=== PATIENT | female | born 1945 | race Caucasian/White ===

== ENCOUNTER → 2018-08-14 11:47 | Outpatient (CLI) | payer MEDICARE, OTHER, SELFPAY ==
--- NOTE | 2018-08-14 | DI.MRI.S_ITS ---
PROCEDURE: MR LUMBAR SPINE WO CON INDICATIONS: RADICULOPATHY OF LEFT LEG TECHNIQUE: Noncontrast sagittal T1 spin echo and T2 fast echo, sagittal STIR, axial T1 and T2 fast spin echo through the lumbar spine. In cases with scoliosis, additional coronal T2 fast spin echo may be performed. COMPARISON: [facility], CR, XR LUMBAR SPINE 2 OR 3 VIEWS, 07/31/2018, 15:48. FINDINGS: Image quality: Excellent. Alignment and Curvature: 5 lumbar type vertebral bodies are present by plain film. There is loss of normal lumbar lordosis. There is mild grade 1 retrolisthesis of L3 on L4 and L4 on L5. Bone Marrow: Marrow is of normal overall signal. No acute vertebral body compression fractures. Atypical T12 hemangioma. Moderate reactive signal within the endplates adjacent to the L3-L4 intervertebral disc. Mild reactive signal within the endplates adjacent to the L4-L5 intervertebral disc. Spinal Cord: Conus medullaris terminates at the mid L2 level. Visualized cord demonstrates normal signal and size. Paraspinous Soft Tissues: No paravertebral masses. L1-L2: Mild disc height loss and desiccation. Mild diffuse disc bulge. Mild bilateral facet hypertrophy and ligamentum flavum hypertrophy. Mild canal stenosis. No foraminal stenosis. L2-L3: Mild disc height loss and desiccation. Moderate diffuse disc bulge. Mild facet and ligamentum flavum hypertrophy. Mild canal stenosis. Mild bilateral foraminal stenosis. L3-L4: Severe disc height loss and desiccation. Moderate diffuse disc bulge. Mild bilateral facet and ligamentum flavum hypertrophy. Mild canal stenosis. Mild bilateral foraminal stenosis. L4-L5: Severe disc height loss and desiccation. Moderate diffuse disc bulge with superimposed right far lateral protrusion. Mild bilateral facet and ligamentum flavum hypertrophy. Mild canal stenosis. Mild to moderate bilateral foraminal stenosis. L5-S1: Mild disc height loss and desiccation. Mild diffuse disc bulge. Moderate facet hypertrophy bilaterally. Mild canal stenosis. Mild to moderate bilateral foraminal stenosis. IMPRESSION: 1. Multilevel degenerative disc and facet disease, as well as ligamentum flavum hypertrophy. 2. Mild multilevel canal stenoses. 3. Multilevel foraminal stenoses, worst at L4-L5 and L5-S1 bilaterally, where there are mild to moderate foraminal stenoses. Dictated by: Xin Tena M.D. on 08/14/2018 at 13:28 Approved by: Xin Tena M.D. on 08/14/2018 at 13:32
== END ==
PROVIDERS: PCP Family Medicine; Visit Provider Orthopaedic Surgery
DX: M51.16 Intervertebral disc disorders with radiculopathy, lumbar region (principal); M51.17 Intervertebral disc disorders with radiculopathy, lumbosacral region; M48.061 Spinal stenosis, lumbar region without neurogenic claudication; M48.07 Spinal stenosis, lumbosacral region
CPT/HCPCS: 72148

== ENCOUNTER → 2018-09-04 13:37 | Outpatient (CLI) | payer MEDICARE, OTHER, SELFPAY ==
--- NOTE | 2018-09-04 | DI.MRI.S_ITS ---
PROCEDURE: MR CERVICAL SPINE WO CON INDICATIONS: SPONDYLOSIS OF CERVICAL REGIONAL TECHNIQUE: Noncontrast sagittal T1 spin echo and T2 fast spin echo, sagittal STIR, foraminal oblique sagittal T2 fast spin echo, and axial gradient echo or T2 fast spin echo through the cervical spine. COMPARISON: [facility], CR, XR CERVICAL SPINE 6+ VIEWS, 08/21/2018, 13:29. FINDINGS: Image quality: Excellent. Alignment and Curvature: There is loss of normal cervical lordosis. There is mild, grade 1 anterolisthesis of C4 on C5, C5 on C6, C6 on C7, and C7 on T1. Bone Marrow: Marrow demonstrates normal overall signal. Hemangioma within the odontoid process of C2. Spinal Cord: Visualized spinal cord has normal size and signal. No cerebellar tonsillar herniation. Paraspinous Soft Tissues: No paravertebral masses. Prevertebral soft tissues are normal in thickness. C2-C3: Mild disc height loss and desiccation. Mild diffuse disc bulge. Mild bilateral facet hypertrophy. Minimal canal stenosis. No foraminal stenosis. C3-C4: Mild disc height loss and desiccation. Mild diffuse disc bulge. Mild bilateral facet hypertrophy. Mild canal stenosis. Mild bilateral foraminal stenosis. C4-C5: Mild disc loss and desiccation. Mild diffuse disc bulge. Right greater than left facet and uncovertebral hypertrophy. Mild canal stenosis. Mild right greater than left foraminal stenosis. C5-C6: Mild disc height loss and desiccation. Mild diffuse disc bulge. Mild bilateral facet and uncovertebral hypertrophy. Mild canal stenosis. Mild bilateral foraminal stenosis. C6-C7: Mild disc height loss and desiccation. Mild diffuse disc bulge. Mild bilateral facet and uncovertebral hypertrophy. Mild canal stenosis. Mild bilateral foraminal stenosis. C7-T1: Mild disco loss and desiccation. Mild diffuse disc bulge, with superimposed small central protrusion. Mild canal stenosis. Mild bilateral foraminal stenosis. IMPRESSION: 1. Multilevel degenerative disc and facet disease, as well as uncovertebral hypertrophy. 2. Mild multilevel canal and foraminal stenoses. 3. No neural impingement. Dictated by: Xin Tena M.D. on 09/04/2018 at 14:42 Approved by: Xin Tena M.D. on 09/04/2018 at 14:45
== END ==
PROVIDERS: PCP Family Medicine; Visit Provider Physical Medicine & Rehabilitation
DX: M47.812 Spondylosis without myelopathy or radiculopathy, cervical region (principal); M50.31 Other cervical disc degeneration, high cervical region; M48.02 Spinal stenosis, cervical region
CPT/HCPCS: 72141

== ENCOUNTER 2019-06-20 09:33 | Outpatient (CLI) | payer MEDICARE, OTHER, SELFPAY ==
[2019-06-20] VITALS (8 sets, daily range): BP systolic 94–123; BP diastolic 43–79; PULSE 69–79; RESP 16–18; TEMP 36.2; O2SAT 97–100
--- NOTE | 2019-06-20 09:34 | DI.RAD.S_ITS ---
PROCEDURE: PAIN C/T INTERLAMINAR INJECT INDICATIONS: SPONDYLOSIS FINDINGS: Fluoroscopic spot filming was performed to verify placement of spinal needles at the C7-T1 level(s), as labeled on the films. Appropriate location(s) of the needle tip(s) was confirmed by injection of iodinated contrast. Dictated by: Beto Humphries M.D. on 06/20/2019 at 13:40 Approved by: Beto Humphries M.D. on 06/20/2019 at 13:40
--- NOTE | 2019-06-20 11:37 | PC.NURSE ---
reporting numbness foot and getting worst, dr mcintyre made aware.
--- NOTE | 2019-06-20 11:56 | P.PCN_ITS ---
Procedures Date/Time Date of procedure: 06/20/19 Time of procedure: 11:56 General Procedure description: PREOP DIAGNOSIS 1. CERVICAL STENOSIS, 2. CERVICAL HNP WITH UPPER EXTREMITY RADICULAR FEATURES, POST OP DIAGNOSIS 1. CERVICAL STENOSIS, 2. CERVICAL HNP WITH UPPER EXTREMITY RADICULAR FEATURES, PROCEDURES 1. FLUORSCOPICALLY GUIDED CONTRAST CONTROLLED INTERLAMINAR EPIDURAL STEROID INJECTION - C7/T1 TL JOANNE, PHYSICIAN: Marciano Wilder DO INDICATIONS: Linda is referred by for treatment of Cervical Stenosis. FINDINGS Cervical Stenosis due to disc deterioration and nerve root irritation and nerve root irritation DESCRIPTION OF PROCEDURE Fluoroscopically guided, contrast-controlled C7/T1 translaminar epidural steroid injection with conscious sedation. Following review of allergy and review of potential side effects and complications, including, but not necessarily limited to, infection, allergic reaction, local tissue breakdown, temporary as well as permanent nerve injury, stroke, paralysis, and possible , the patient indicated that patient understood and agreed to proceed. An informed consent document was signed by the patient, witnessed by a nurse, and placed in the patient's chart. Additionally, other treatment options including modalities, medications, and physical therapy were reviewed with the patient. After review of previous anaesthesic history and IV conscious sedation the pat ient was deemed safe to proceed with todays procedure with IV conscious sedation as ASA class II designation. Safety time-out was performed to confirm patient ID, procedure to be performed and site of procedure. IV sedation was accomplished with a combination of 2mg of Versed administered by the RN after DO order, titrated to patient comfort during the course of the procedure while the patient remained responsive to all verbal commands. In the prone position, following sterile prep and drape of the cervical region, the C7/T1 translaminar space was identified fluoroscopically. The skin was ane sthetized via a 25-gauge 1.5-inch needle with 1% lidocaine solution. At this point, a 25-gauge, 2.5-inch short bevel spinal needle was atraumatically introduced and advanced under fluoroscopic guidance into epidural space at the C7/T1 translaminar space. Depth was confirmed on lateral view. Radiological data, including multiple fluoroscopic views of the cervical spine, reveal a spinal needle at the C7/T1 translaminar space. Lateral views then show placement of the needle in the epidural space. Subsequent views show contrast material flowing superiorly and inferiorly in the epidural space. DSA fluoroscopy with live contrast injection, once again, confirmed no vascular or intrathecal uptake. At this point, using loss of resistance technique with saline and air, the epidural space was entered. Following negative aspiration, injection of approximately 1.5 cc of Isovue-200 with live fluoroscopy in the AP view confirmed epidural flow in the epidural space without vascular or intrathecal uptake observed. Subsequently, a test dose of 1 cc of 1% lidocaine solution was injected and patient was observed for two minutes without signs or symptoms of complications, including abdominal pain, shortness of breath, bilateral upper or lower extremity weakness, nausea and vomiting, prior to steroid injection. At this point, 3cc or 30mg of dexamethasone was then injected without incident. The patient tolerated the procedure well without signs or symptoms of complications prior to transfer to the recovery area for further monitoring The patient was then transferred to the recovery area where they were observed for an appropriate period of time after the injection. The patient reported a VAS score of 6 prior to the procedure and a post-procedure VAS of 0. Total Fluoroscopy Time: 23.2 seconds Total Conscious Sedation Time: 24min POST OP INSTRUCTIONS The patient was provided a Pain Log to continue to record their response to the target-specific procedure prior to follow-up visit with the referring provider. Additionally, specific post-injection care instructions and a contact number to our office were provided if concerns arise regarding possible complications ass ociated with the procedure are suspected. Marciano Wilder, Complications: none
[2019-06-20] MEDS: MIDAZOLAM 5 MG/5 ML VIAL IV (12:02)
[2019-06-20] MEDS: IOPAMIDOL 15 ML VIAL 3 ML INJ (12:07)
[2019-06-20] MEDS: DEXAMETHASONE 10 MG/ML VIAL 30 MG INJ (12:07)
[2019-06-20] MEDS: BUPIVACAINE 0.5% (PF) VIAL 2 ML INJ (12:08)
--- NOTE | 2019-06-20 12:51 | PC.NURSE ---
1214 pt returned via w/c post procedure, is alert and able to get self from w/c to recliner without assistance. resumed care from dirk yee. ice water provided, pt tolerated snacks.
--- NOTE | 2019-06-20 15:50 | PC.NURSE ---
1214 rtr via w/c post procedure, able to transfer self from w/c to stretcher with assist, resuming care from dirk yee. cookies and coffee provided.
== END 2019-06-20 12:51 | disposition home or self-care (01) ==
LOC: RAD 09:34
PROVIDERS: PCP Family Medicine; Visit Provider Physical Medicine & Rehabilitation
DX: M48.02 Spinal stenosis, cervical region (principal); M50.13 Cervical disc disorder with radiculopathy, cervicothoracic region
CPT/HCPCS: 62321; 99152; J1100; J2250; J3010

== ENCOUNTER 2019-08-15 14:19 | Outpatient (CLI) | payer MEDICARE, OTHER, SELFPAY ==
[2019-08-15] VITALS (8 sets, daily range): BP systolic 101–125; BP diastolic 48–76; PULSE 70–79; RESP 16; TEMP 36.1; O2SAT 94–99
--- NOTE | 2019-08-15 14:22 | DI.RAD.S_ITS ---
PROCEDURE: PAIN L INTERLAMINAR/CAUDAL INJ INDICATIONS: SPINAL STENOSIS FINDINGS: Fluoroscopic spot filming was performed to verify placement of spinal needles at the L3-L4 level(s), as labeled on the films. Appropriate location(s) of the needle tip(s) was confirmed by injection of iodinated contrast. Dictated by: Beto Humphries M.D. on 08/15/2019 at 17:09 Approved by: Beto Humphries M.D. on 08/15/2019 at 17:09
--- NOTE | 2019-08-15 14:59 | P.PCN_ITS ---
Procedures Date/Time Date of procedure: 08/15/19 Time of procedure: 14:59 General Procedure description: PROVIDER: Marciano Wilder DO Operative Note PREOP DIAGNOSIS 1. HNP WITH RADICULAR FEATURES, 2. MULTILEVEL CENTRAL STENOSIS, POST OP DIAGNOSIS 1. HNP WITH RADICULAR FEATURES, 2. MULTILEVEL CENTRAL STENOSIS PROCEDURES 1. FLUORSCOPICALLY GUIDED CONTRAST CONTROLLED INTERLAMINAR EPIDURAL STEROID INJECTION -L3/4 PHYSICIAN: Marciano Wilder DO INDICATIONs: Linda is referred by for treatment of Bilateral Foraminal Stenosis R>L LE symptoms. FINDINGS Multilevel Central Spinal Stenosis with Nerve Root Compression DESCRIPTION OF PROCEDURE Fluoroscopically guided, contrast-controlled L3/4 translaminar epidural steroid injection. Following review of allergy and review of potential side effects and complications, including, but not necessarily limited to, infection, allergic reaction, local tissue breakdown, temporary as well as permanent nerve injury, paralysis, stroke and possible , the patient indicated that the patient understood and agreed to proceed. An informed consent document was signed by the patient, witnessed by a nurse, and placed in the patient's chart. Additionally, other treatment options including modalities, medications, and physical therapy were reviewed with the patient. After review of previous anaesthesic history and IV conscious sedation the patient was deemed safe to proceed with todays procedure with IV conscious sedation as ASA class II designation. Safety time-out was performed to confirm patient ID, procedure to be performed and site of procedure. IV sedation was a ccomplished with a combination of 2mg of Versed and 50mcg of Fentanyl was administered by the RN after DO order, titrated to patient comfort during the course of the procedure while the patient remained responsive to all verbal commands In the prone position, following sterile prep and drape of the lumbar region, the L3/4 translaminar space was identified fluoroscopically. The skin was anesthetized via a 25-gauge, 1.5-inch needle with 1% lidocaine solution. At this point, a 22-gauge short bevel spinal needle was atraumatically introduced and advanced under fluoroscopic guidance into the region of the L3/4 translaminar space. Depth was confirmed on lateral view. Radiological data, including multiple fluoroscopic views of the lumbar spine, reveal a spinal needle at the L3/4 translaminar space. Lateral views then show placement of the needle in the epidural space. Subsequent views show contrast material flowing superiorly and inferiorly in the epidural space. No vascular or intrathecal uptake is observed. At this point, using loss of resistance technique with saline and air, the epidural space was entered. This was confirmed following negative aspiration with injection of approximately 1.5 cc of Isovue 200, showing excellent epidural flow without vascular or intrathecal uptake. At this point, 1 cc of 1% lidocaine solution combined with 3cc or 20mg of dexamethasone and 6mg betamethasone was injected without incident. The patient tolerated the procedure well without signs or symptoms of complications prior to transfer to the recovery area continued monitoring w ithout incident. The patient was then transferred to the recovery area where they were observed for an appropriate period of time after the injection. The patient reported a VAS score of 6 prior to the procedure and a post- procedure VAS of 0. Total Fluoroscopy Time: 11.8 seconds, 8.99 mGy Total Conscious Sedation Time: 24min POST OP INSTRUCTIONS The patient was provided a Pain Log to continue to record their response to the target-specific procedure prior to follow-up visit with their referring physician. Additionally, specific post-injection care instructions and a contact number to our office were provided if concerns arise regarding possible complications associated with the procedure are suspected. Marciano Wilder, Complications: none
[2019-08-15] MEDS: MIDAZOLAM 5 MG/5 ML VIAL IV (15:56)
[2019-08-15] MEDS: fentaNYL 100 MCG/2 ML INJ 50 MCG IV (15:57)
[2019-08-15] MEDS: IOPAMIDOL 15 ML VIAL 3 ML INJ (16:00)
[2019-08-15] MEDS: BETAMETHASONE 30 MG/5 ML MDV 6 MG INJ (16:01)
[2019-08-15] MEDS: DEXAMETHASONE 10 MG/ML VIAL 20 MG INJ (16:01)
[2019-08-15] MEDS: BUPIVACAINE 0.25% (PF) VIAL 2 ML INJ (16:01)
--- NOTE | 2019-08-15 16:03 | PC.NURSE ---
ASSISTING PT OFF TABLE AND TRANSPORTING TO POST PROC AREA IN STABLE CONDITION.
--- NOTE | 2019-08-15 16:46 | PC.NURSE ---
Discharge note: Arrived for post procedure monitoring at 1610. VSS, O2 sat WNL on RA. tolerated PO without nausea. No complaints of pain. 10/18. Discharge instructions reviewed with good understanding. Ambulated to car. Gait steady. Will take ferry back to [facility].
== END 2019-08-15 16:43 ==
LOC: RAD 14:21
PROVIDERS: PCP Family Medicine; Visit Provider Physical Medicine & Rehabilitation
DX: M51.16 Intervertebral disc disorders with radiculopathy, lumbar region (principal); M48.061 Spinal stenosis, lumbar region without neurogenic claudication
CPT/HCPCS: 62323; 99152; J0702; J1100; J2250; J3010

== ENCOUNTER → 2020-03-26 11:02 | Outpatient (CLI) | payer MEDICARE, OTHER, SELFPAY ==
--- NOTE | 2020-03-26 11:45 | DI.CT.S_ITS ---
PROCEDURE: CT ABDOMEN PELVIS WO CON INDICATIONS: Left lower quadrant pain TECHNIQUE: After the administration of oral contrast, 5 mm thick sections acquired from the diaphragms to the symphysis. 5 mm coronal and sagittal reformats were performed. For radiation dose reduction, the following was used: automated exposure control, adjustment of mA and/or kV according to patient size. COMPARISON: None. FINDINGS: Image quality: Excellent. ABDOMEN: Lung bases: Lung bases are clear. Heart size is normal. Solid organs: Liver is normal in size. Gallbladder negative. Pancreas is normal in size. Spleen is normal in size. No adrenal nodules. Both kidneys are normal in size, without hydronephrosis or nephrolithiasis. Peritoneum and bowel: Bowel loops demonstrate normal wall thickness and caliber. No free fluid or air. Nodes and vessels: No retroperitoneal or mesenteric adenopathy by size criteria. Aorta and inferior vena cava are normal in size. Miscellaneous: No ventral hernias. PELVIS: Genitourinary: Bladder is obscured by streak artifact from bilateral hip arthroplasties. Incidentally noted pessary. Bilateral mildly enlarged inguinal lymph nodes, technically non-specific Bones: No suspicious bony lesions. No vertebral body compression fractures. IMPRESSION: No specific visualized etiology for left lower quadrant pain. However, please note pelvis is partially obscured by streak artifact from bilateral hip arthroplasties technically cannot entirely exclude acute diverticulitis, although where visualized the bowel appears grossly normal. No hernia identified. Mild bilaterally enlarged inguinal lymph nodes, recommend clinical correlation and management. Dictated by: Beto Humphries M.D. on 03/26/2020 at 14:25 Approved by: Beto Humphries M.D. on 03/26/2020 at 14:34
== END ==
PROVIDERS: PCP Family Medicine; Referring Provider Family Medicine; Visit Provider Family Medicine
DX: R10.32 Left lower quadrant pain (principal); R59.0 Localized enlarged lymph nodes; Z96.643 Presence of artificial hip joint, bilateral
CPT/HCPCS: 74176

== ENCOUNTER → 2020-08-05 10:39 | Outpatient (CLI) | payer MEDICARE, OTHER, SELFPAY ==
--- NOTE | 2020-08-05 10:41 | DI.RAD.S_ITS ---
PROCEDURE: XR LUMBAR SPINE MIN 4V INDICATIONS: HERNIATED NUCLEUS, ATHROPATHY, SONDYLOSIS TECHNIQUE: 5 views of the lumbar spine were acquired. COMPARISON: None. FINDINGS: Bones: 5 nonrib-bearing vertebrae are present. There is normal bony alignment. No vertebral body compression fractures. No suspicious bony lesions. Severe L3-L4 and L4-L5 degenerative disc disease. Moderate L4-L5 and L5-S1 facet arthropathy. Soft tissues: Overlying bowel gas pattern is normal. No suspicious soft tissue calcifications. Oblique images: No pars defects. IMPRESSION: 1. Multilevel degenerative disc disease. 2. Multilevel facet arthropathy. 3. No fracture. No acute osseous lesion. If symptoms and/or clinical suspicion for pathology persists, evaluation with MRI may be helpful for further assessment. Dictated by: Rosa Agarwal MD, PhD on 08/05/2020 at 16:56 Approved by: Rosa Agarwal MD, PhD on 08/05/2020 at 16:57
--- NOTE | 2020-08-05 12:23 | DI.RAD.S_ITS ---
PROCEDURE: XR KNEE LT 3V INDICATIONS: left knee pain TECHNIQUE: 3 views of the knee were acquired. COMPARISON: None. FINDINGS: Bones: No acute fractures or dislocations. No suspicious bony lesions. Mild degenerative changes are seen in the medial and anterior compartments. Soft tissues: Small joint effusion. No suspicious soft tissue calcifications. IMPRESSION: No acute osseous abnormality. Mild degenerative changes are seen. Small joint effusion. Dictated by: Bertin Boo M.D. on 08/05/2020 at 12:50 Approved by: Bertin Boo M.D. on 08/05/2020 at 12:51
== END ==
PROVIDERS: PCP Family Medicine; Referring Provider Physical Medicine & Rehabilitation; Visit Provider Physical Medicine & Rehabilitation
DX: M17.12 Unilateral primary osteoarthritis, left knee (principal); M25.462 Effusion, left knee; M47.27 Other spondylosis with radiculopathy, lumbosacral region; M47.26 Other spondylosis with radiculopathy, lumbar region; M51.17 Intervertebral disc disorders with radiculopathy, lumbosacral region; M51.16 Intervertebral disc disorders with radiculopathy, lumbar region
CPT/HCPCS: 72110; 73562; 99214

== ENCOUNTER 2020-08-27 08:54 | Outpatient (CLI) | payer MEDICARE, OTHER, SELFPAY ==
[2020-08-27] VITALS (8 sets, daily range): BP systolic 102–116; BP diastolic 56–67; PULSE 69–81; RESP 13–23; TEMP 36.6–37.2; O2SAT 96–100
--- NOTE | 2020-08-27 08:58 | DI.RAD.S_ITS ---
PROCEDURE: PAIN L INTERLAMINAR/CAUDAL INJ INDICATIONS: SPONDYLOSIS COMPARISON: [facility], XA, PAIN L INTERLAMINAR/CAUDAL INJ, 08/15/2019, 15:57. FINDINGS: Fluoroscopic spot filming was performed to verify placement of a spinal needle at the L3-L4 level, as labeled on the films. Appropriate location of the needle tip was confirmed by injection of iodinated contrast. IMPRESSION: No significant intraprocedural abnormality. Dictated by: Yobani Ward M.D. on 08/27/2020 at 9:27 Approved by: Yobani Ward M.D. on 08/27/2020 at 9:28
[2020-08-27] MEDS: fentaNYL 100 MCG/2 ML INJ 50 MCG IV (10:00)
[2020-08-27] MEDS: MIDAZOLAM 5 MG/5 ML VIAL IV (10:00)
[2020-08-27] MEDS: IOPAMIDOL 15 ML VIAL 3 ML INJ (10:02)
[2020-08-27] MEDS: BETAMETHASONE 30 MG/5 ML MDV 6 MG INJ (10:03)
[2020-08-27] MEDS: DEXAMETHASONE 10 MG/ML VIAL 20 MG INJ (10:03)
[2020-08-27] MEDS: BUPIVACAINE 0.25% (PF) VIAL 5 ML SUBCUT (10:05)
--- NOTE | 2020-08-27 10:11 | P.PCN_ITS ---
Date/Time/Diagnoses Date of procedure: 08/27/20 Time of procedure: 10:11 Pre-procedure diagnosis: 1. HNP WITH RADICULAR FEATURES, 2. MULTILEVEL CENTRAL STENOSIS, Post-procedure diagnosis: same Procedure Notes Procedure: 1. FLUOROSCOPICALLY GUIDED CONTRAST CONTROLLED INTERLAMINAR EPIDURAL STEROID INJECTION - L3/4 Indications: Linda is referred by Dr. Aguilar for treatment of Bilateral Foraminal Stenosis L>R LE symptoms. Physician: Marciano Wilder Total Fluoroscopy time (seconds): 7 Total sedation minutes: 9 Complications: none Procedure in detail & Post-procedure care: FINDINGS Multilevel Central Spinal Stenosis with Nerve Root Compression DESCRIPTION OF PROCEDURE Fluoroscopically guided, contrast-controlled L3/4 translaminar epidural steroid injection. Following review of allergy and review of potential side effects and complications, including, but not necessarily limited to, infection, allergic reaction, local tissue breakdown, temporary as well as permanent nerve injury, paralysis, stroke and possible , the patient indicated that the patient understood and agreed to proceed. An informed consent document was signed by the patient, witnessed by a nurse, and placed in the patient's chart. Additionally, other treatment options including modalities, medications, and physical therapy were reviewed with the patient. After review of previous anaesthesic history and IV conscious sedation the patient was deemed safe to proceed with today?s procedure with IV conscious sedation as ASA class II designation. Safety time-out was performed to confirm patient ID, procedure to be performed and site of procedure. IV sedation was accomplished with a combination of 2mg of Versed and 50mcg of Fentanyl was administered by the RN after DO order, titrated to patient comfort during the course of the procedure while the patient remained responsive to all verbal commands. In the prone position, following sterile prep and drape of the lumbar region, the L3/4 translaminar space was identified fluoroscopically. The skin was anesthetized via a 25-gauge, 1.5-inch needle with 1% lidocaine solution. At this point, a 22-gauge short bevel spinal needle was atraumatically introduced and advanced under fluoroscopic guidance into the region of the L3/4 translaminar space. Depth was confirmed on lateral view. Radiological data, including multiple fluoroscopic views of the lumbar spine, reveal a spinal needle at the L3/4 translaminar space. Lateral views then show placement of the needle in the epidural space. Subsequent views show contrast material flowing superiorly and inferiorly in the epidural space. No vascular or intrathecal uptake is observed. At this point, using loss of resistance technique with saline and air, the epidural space was entered. This was confirmed following negative aspiration with injection of approximately 1.5 cc of Isovue 200, showing excellent epidural flow without vascular or intrathecal uptake. At this point, 1cc of 1% lidocaine solution combined with 3cc or 20mg of dexamethasone and 6mg of betamethasone was injected without incident. The patient tolerated the procedure well without signs or symptoms of complications prior to transfer to the recovery area continued monitoring without incident. The patient was then transferred to the recovery area where they were observed for an appropriate period of time after the injection. The patient reported a VAS score of 6 prior to the procedure and a post- procedure VAS of 0. POST OP INSTRUCTIONS The patient was provided a Pain Log to continue to record their response to the target-specific procedure prior to follow-up visit with their referring physician. Additionally, specific post-injection care instructions and a contact number to our office were provided if concerns arise regarding possible complications associated with the procedure are suspected.
== END 2020-08-27 10:30 | disposition home or self-care (01) ==
LOC: RAD 08:58
PROVIDERS: PCP Family Medicine; Referring Provider Physical Medicine & Rehabilitation; Visit Provider Physical Medicine & Rehabilitation
DX: M51.26 Other intervertebral disc displacement, lumbar region (principal)
CPT/HCPCS: 62323; J0702; J1100; J2250; J3010

== ENCOUNTER 2020-12-01 08:55 | Day surgery (SDC) | payer MEDICARE, OTHER, SELFPAY ==
[2020-12-01 09:50] VITALS: BP 105/66; PULSE 71; RESP 16; TEMP 37.2; O2SAT 100; BMI 20.8
[2020-12-01] MEDS: PROPARACAINE 0.5% OPHTH SOL 2 DROPS EYE-OP (09:50)
[2020-12-01] MEDS: CATARACT EYE COMPOUND (10 DROPS/SYRINGE) 3 DROPS EYE-OP (10:04)
--- NOTE | 2020-12-01 10:20 | P.OP_ITS ---
Operative Date/Time/Diagnoses Pre-op diagnosis: Nuclear cataract right eye Procedure & Clinicians Procedure: Cataract Surgery Same procedure as scheduled: Yes Surgeon: Issac Kaye Anesthesia Type: MAC +/- and Sedation Operative Notes Procedure in detail: Patient brought to the operating suite. Tetracaine drops placed in the right eye. Marking instrument was used to elisa vertical and horizontal meridians. Patient was prepped and draped in sterile manner. Wire lid speculum was placed in the eye. Marking instrument was used to elisa 170 degree meridian. Betadine drops were placed on the eye. This was irrigated. Lidocaine jelly was placed on the eye. A paracentesis port was created with a side-port blade. 0.1 mL 1% preservative free lidocaine was injected into the anterior chamber. The anterior chamber was deepened with viscoelastic. 2.6 mm keratome was used to create a temporal clear corneal incision. Cystotome and Utrata forceps were used to create continuous tear capsulorrhexis. Balanced salt solution was used to hydro dissect the nucleus. The phacoemulsification handpiece was inserted and the nucleus was removed using the stop and chop technique. The irrigation aspiration handpiece was inserted and the remaining cortex was removed. Anterior chamber was deepened with viscoelastic. An Long [id number] intraocular lens with a power of 21.0 was injected into the capsular bag. Irrigation aspiration handpiece was inserted and the remaining viscoelastic was removed. The lens was rotated to the 170 degree meridian. Incision was hydrated with balanced salt solution and found to leak. One 10-0 Nylon suture was placed to close the incision and it was leak free with pressure with Weck- Lana sponges. 0.1 mL Vigamox injected anterior chamber. 0.3 mL Kenalog 10 mg was injected subconjunctivally. Lid speculum was removed. The patient left the operating room in excellent condition. Complications: none Post-operative Condition: stable Disposition: same day surgery
--- NOTE | 2020-12-01 10:20 | PM.PREOP ---
Pre-operative Note Interval Note History & Physical reviewed/Exam performed by Physician: Yes Changes to H&P: No
[2020-12-01] MEDS: PHENYLEPHRINE/LIDOCAINE VIAL (OR) 0.2 ML EYE-OP (10:38)
[2020-12-01] MEDS: TRIAMCINOLONE 50 MG/5 ML VIAL INJ (10:38)
[2020-12-01] MEDS: BALANCED SALT IRRIG SOLN NO.2 500 ML, EPINEPHrine 1 MG IRR (10:39)
[2020-12-01] MEDS: MOXIFLOXACIN INJ 5 MG/ML VIAL EYE-OP (10:39)
[2020-12-01] MEDS: CHONDROIDTIN/SOD HYALURONATE 1.05 ML SYRINGE INTRAOCULA (10:39)
[2020-12-01] MEDS: LIDOCAINE JELLY 2% 5 ML 1 APPLIC TOP (10:39)
[2020-12-01] MEDS: TETRACAINE 0.5% OPHTH DROPS 4 ML 2 DROPS EYE-OP (10:40)
[2020-12-01 11:05] VITALS: BP 114/66; PULSE 65; RESP 16; TEMP 37.3; O2SAT 98
== END 2020-12-01 11:20 | disposition home or self-care (01) ==
PROVIDERS: PCP Family Medicine; Referring Provider Ophthalmology; Visit Provider Ophthalmology
PROC: (CPT 66984; principal; 2020-12-01 10:45)
DX: H25.11 Age-related nuclear cataract, right eye (principal)
CPT/HCPCS: 66984; J0171; J2250; J3010; J3301; V2787

== ENCOUNTER 2020-12-15 11:02 | Day surgery (SDC) | payer MEDICARE, OTHER, SELFPAY ==
[2020-12-15 11:45] VITALS: BP 106/63; PULSE 68; RESP 16; TEMP 36.8; O2SAT 98; BMI 20.2
[2020-12-15] MEDS: PROPARACAINE 0.5% OPHTH SOL 2 DROPS EYE-OP (11:45)
[2020-12-15] MEDS: CATARACT EYE COMPOUND (10 DROPS/SYRINGE) 3 DROPS EYE-OP (11:55)
--- NOTE | 2020-12-15 12:58 | P.OP_ITS ---
Operative Date/Time/Diagnoses Pre-op diagnosis: Nuclear Cataract Left eye Post-op diagnosis: same Procedure & Clinicians Same procedure as scheduled: Yes Surgeon: Issac Kaye Anesthesia Type: MAC +/- and Sedation Operative Notes Procedure in detail: Patient brought to the operating suite. Tetracaine drops placed in the left eye. Marking instrument was used to elisa the vertical and horizontal meridians. Patient was prepped and draped in sterile manner. Wire lid speculum was placed in the eye. Marking instrument was used to elisa the 170 degree meridian. Betadine drops were placed on the eye. This was irrigated. Lidocaine jelly was placed on the eye. A paracentesis port was created with a side-port blade. 0.1 mL 1% preservative free lidocaine was injected into the anterior chamber. The anterior chamber was deepened with viscoelastic. 2.6 mm keratome was used to create a temporal clear corneal incision. Cystotome and Utrata forceps were used to create continuous tear capsulorrhexis. Balanced salt solution was used to hydro dissect the nucleus. The phacoemulsification handpiece was inserted and the nucleus was removed using the stop and chop tech nique. The irrigation aspiration handpiece was inserted and the remaining cortex was removed. Anterior chamber was deepened with viscoelastic. An Long [id number] intraocular lens with a power of 20.5 was injected into the capsular bag. Irrigation aspiration handpiece was inserted and the remaining viscoelastic was removed. The lens was rotated to the 170 degree meridian. Incision was hydrated with balanced salt solution and found to be leak free with pressure with Weck-Lana sponges. 0.1 mL Vigamox injected anterior chamber. 0.3 mL Kenalog 10 mg was injected subconjunctivally. Lid speculum was removed. The patient left the operating room in excellent condition. Complications: none Post-operative Condition: stable Disposition: same day surgery
--- NOTE | 2020-12-15 12:58 | PM.PREOP ---
Pre-operative Note Interval Note History & Physical reviewed/Exam performed by Physician: Yes Changes to H&P: No
[2020-12-15] MEDS: MOXIFLOXACIN INJ 5 MG/ML VIAL EYE-OP (13:16)
[2020-12-15] MEDS: TRIAMCINOLONE 50 MG/5 ML VIAL INJ (13:16)
[2020-12-15] MEDS: LIDOCAINE JELLY 2% 5 ML 1 APPLIC TOP (13:16)
[2020-12-15] MEDS: TETRACAINE 0.5% OPHTH DROPS 4 ML 2 DROPS EYE-OP (13:17)
[2020-12-15] MEDS: BALANCED SALT IRRIG SOLN NO.2 500 ML, EPINEPHrine 1 MG IRR (13:17)
[2020-12-15] MEDS: CHONDROIDTIN/SOD HYALURONATE 1.05 ML SYRINGE INTRAOCULA (13:17)
[2020-12-15] MEDS: PHENYLEPHRINE/LIDOCAINE VIAL (OR) 0.2 ML EYE-OP (13:17)
[2020-12-15 13:38] VITALS: BP 102/60; PULSE 63; RESP 13; TEMP 36.8; O2SAT 98
== END 2020-12-15 14:09 | disposition home or self-care (01) ==
PROVIDERS: PCP Family Medicine; Referring Provider Ophthalmology; Visit Provider Ophthalmology
PROC: (CPT 66984; principal; 2020-12-15 13:15)
DX: H25.12 Age-related nuclear cataract, left eye (principal)
CPT/HCPCS: 66984; J0171; J2250; J3010; J3301; V2788

== ENCOUNTER → 2021-06-18 14:55 | Outpatient (CLI) | payer MEDICARE, OTHER, SELFPAY ==
[2021-06-18 18:38] LABS: C-Reactive Protein Quant < 0.5 mg/dL (<1.0); Hemoglobin A1C% w Est Avg Glu 5.4 % (4.0-6.0)
[2021-06-18 18:49] LABS: Rheumatoid Factor < 8.6 IU/mL (<12.0)
[2021-06-18 18:50] LABS: Erythrocyte Sedimentation Rate 5 MM/HR (0-20)
[2021-06-18 19:24] LABS: Vitamin B12 348 pg/mL (239-931)
[2021-06-22 16:36] LABS: ANA Screen, IFA Negative (.)
== END ==
PROVIDERS: PCP Family Medicine; Referring Provider Family Medicine; Visit Provider Family Medicine
DX: R20.0 Anesthesia of skin (principal); M17.12 Unilateral primary osteoarthritis, left knee; R20.2 Paresthesia of skin; R29.898 Other symptoms and signs involving the musculoskeletal system
CPT/HCPCS: 82607; 83036; 85651; 86038; 86140; 86430

== ENCOUNTER → 2021-09-20 11:49 | Outpatient (CLI) | payer MEDICARE, OTHER, SELFPAY ==
[2021-09-20 19:30] LABS: Add Manual Diff / Slide Review NO; Basophils Absolute Auto 100 /uL (0-100); Basophils Percent Auto 1.1 % (0-2); Eosinophils Absolute Auto 100 /uL (0-450); Hematocrit 40.5 % (36-46); Hemoglobin 13.8 g/dL (12.0-16.0); Lymphocytes Absolute Auto 1400 /uL (1100-4500); Lymphocytes Percent Auto 21.2 % (25-40); Mean Corpuscular Hemoglobin 31.8 PG (26-34); Mean Corpuscular Volume 93.7 fL (80-100); Monocytes Absolute Auto 500 /uL (0-900); Monocytes Percent Auto 8.3 % (3-14); Neutrophils Absolute Auto 4400 /uL (1500-7000); Neutrophils Percent Auto 68.4 % (50-75); Platelet Count 277 X10^3/uL (150-400); Red Blood Cell Count 4.33 X10^6/uL (4.0-5.2); Red Cell Distribution Width 12.3 % (11.6-14.8); White Blood Cell Count 6.4 X10^3/uL (4.5-11.0)
[2021-09-20 20:32] LABS: Erythrocyte Sedimentation Rate 6 MM/HR (0-20)
[2021-09-20 21:58] LABS: C-Reactive Protein Quant < 0.5 mg/dL (<1.0)
== END ==
PROVIDERS: PCP Family Medicine; Visit Provider Family Medicine
DX: M79.2 Neuralgia and neuritis, unspecified (principal)
CPT/HCPCS: 85025; 85651; 86140

== ENCOUNTER → 2022-01-20 11:10 | Outpatient (CLI) | payer MEDICARE, OTHER, SELFPAY ==
--- NOTE | 2022-01-20 11:11 | DI.MRI.S_ITS ---
PROCEDURE: MR CERVICAL SPINE WO CON INDICATIONS: Cervical myelopathy TECHNIQUE: Noncontrast sagittal T1 spin echo and T2 fast spin echo, sagittal STIR, foraminal oblique sagittal T2 fast spin echo, and axial gradient echo or T2 fast spin echo through the cervical spine. COMPARISON: Located Within [facility], MR, MR CERVICAL SPINE WO CON, 09/04/2018, 13:51. [facility], CR, XR CERVICAL SPINE 6+ VIEWS, 08/21/2018, 13:29. FINDINGS: Image quality: This examination is limited by involuntary motion artifact. Alignment and Curvature: There is minimal anterolisthesis seen at C5-C6 and C6-C7 and C7-T1. Bone Marrow: Marrow demonstrates normal overall signal. Spinal Cord: Visualized spinal cord has normal size and signal. No cerebellar tonsillar herniation. Paraspinous Soft Tissues: No paravertebral masses. Prevertebral soft tissues are normal in thickness. C2-C3: No significant abnormality is seen. C3-C4: The disc height is well-preserved. Loss of disc signal is seen at this level. A mild degree of generalized disc osteophyte complex is seen. At least moderate facet hypertrophy is seen. There is at least moderate left-sided and no significant right-sided neural foraminal narrowing. No significant central canal narrowing is seen. Mild progression compared to 2018. C4-C5: The disc height is well-preserved. Loss of disc signal is seen at this level. A mild degree of generalized disc osteophyte complex is seen. At least moderate facet hypertrophy is seen. There is moderate bilateral neural foraminal narrowing seen. Mild central canal narrowing is seen. These imaging findings have progressed compared to the prior study. C5-C6: The disc height is well-preserved. Loss of disc signal is seen at this level. Mild to moderate disc osteophyte complex is seen. There is at least moderate facet hypertrophy seen at this level. Moderate bilateral neural foraminal narrowing can be seen, right worse than left. Mild to moderate central canal narrowing is seen. These degenerative changes are slightly progressed compared to 2018. C6-C7: The disc height and disk signal are well-preserved. Mild to moderate disc osteophyte complex is seen. At least moderate facet hypertrophy is seen at this level. Mild bilateral neural foraminal narrowing is seen. Mild central canal narrowing is seen. Stable from the prior study. C7-T1: The disc height is well-preserved. Loss of disc signal is seen at this level. On the axial images, this disc level is poorly seen, secondary to motion artifact. There is believed to be moderate disc osteophyte complex, with a mild central disc protrusion. Moderate bilateral neural foraminal narrowing is seen. Mild central canal narrowing is seen. When comparison is made with the prior images, these findings are similar. IMPRESSION: Multiple levels of cervical spine degenerative change are seen, which are slightly progressed compared to 2018. Dictated by: Yobani Ward M.D. on 01/20/2022 at 16:31 Approved by: Yobani Ward M.D. on 01/20/2022 at 16:36
== END ==
PROVIDERS: PCP Family Medicine; Referring Provider Physical Medicine & Rehabilitation; Visit Provider Physical Medicine & Rehabilitation
DX: M47.812 Spondylosis without myelopathy or radiculopathy, cervical region (principal); G95.9 Disease of spinal cord, unspecified
CPT/HCPCS: 72141

== ENCOUNTER → 2022-02-28 07:56 | Outpatient (CLI) | payer MEDICARE, OTHER, SELFPAY ==
[2022-02-28 20:45] LABS: COVID-19 CEPHEID PCR (VTM/NP) Negative (Negative)
== END ==
PROVIDERS: PCP Family Medicine; Visit Provider Family Medicine
DX: Z20.822 Contact with and (suspected) exposure to COVID-19 (principal)
CPT/HCPCS: C9803; U0003; U0005

== ENCOUNTER 2022-03-03 08:43 | Outpatient (CLI) | payer MEDICARE, OTHER, SELFPAY ==
[2022-03-03] VITALS (8 sets, daily range): BP systolic 93–118; BP diastolic 54–68; PULSE 59–66; RESP 16–20; TEMP 36.8; O2SAT 98–100
--- NOTE | 2022-03-03 08:44 | DI.RAD.S_ITS ---
PROCEDURE: PAIN C/T INTERLAMINAR INJECT INDICATIONS: SPINAL STENOSIS COMPARISON: None. FINDINGS: Fluoroscopic spot filming was performed to verify placement of spinal needles at the C7-T1 interlaminar space level(s), as labeled on the films. Appropriate location(s) of the needle tip(s) was confirmed by injection of iodinated contrast. IMPRESSION: Access needle in the C7-T1 interlaminar space for translaminar epidural steroid injection. Dictated by: Rosa Agarwal MD, PhD on 03/03/2022 at 14:20 Approved by: Rosa Agarwal MD, PhD on 03/03/2022 at 14:21
[2022-03-03] MEDS: MIDAZOLAM 2 MG/2 ML VIAL IV (09:54)
[2022-03-03] MEDS: IOPAMIDOL 15 ML VIAL 3 ML INJ (09:58)
[2022-03-03] MEDS: BUPIVACAINE 0.25% (PF) VIAL 2 ML INJ (09:58)
[2022-03-03] MEDS: DEXAMETHASONE 10 MG/ML VIAL 30 MG INJ (09:59)
--- NOTE | 2022-03-03 10:08 | P.PCN_ITS ---
Date/Time/Diagnoses Date of procedure: 03/03/22 Time of procedure: 10:08 Pre-procedure diagnosis: 1. CERVICAL STENOSIS, 2. CERVICAL HNP WITH UPPER EXTREMITY RADICULAR FEATURES Procedure Notes Procedure: FLUORSCOPICALLY GUIDED CONTRAST CONTROLLED INTERLAMINAR EPIDURAL STEROID INJECTION - C7/T1 TL JOANNE Indications: Linda is referred by Dr. Fisher for treatment of Cervical Stenosis. Physician: Marciano Wilder Total Fluoroscopy time (seconds): 26 Total sedation minutes: 10 Complications: none Procedure in detail & Post-procedure care: DESCRIPTION OF PROCEDURE Following review of allergy and review of potential side effects and comp lications, including, but not necessarily limited to, infection, allergic reaction, local tissue breakdown, temporary as well as permanent nerve injury, stroke, paralysis, and possible , the patient indicated that patient understood and agreed to proceed. An informed consent document was signed by the patient, witnessed by a nurse, and placed in the patient's chart. Additionally, other treatment options including modalities, medications, and physical therapy were reviewed with the patient. After review of previous anaesthesic history and IV conscious sedation the patient was deemed safe to proceed with todays procedure with IV conscious sedation as ASA class II designation. Safety time-out was performed to confirm patient ID, procedure to be performed and site of procedure. IV sedation was accomplished with a combination of 2mg of Versed administered by the RN after DO order, titrated to patient comfort during the course of the procedure while the patient remained responsive to all verbal commands. In the prone position, following sterile prep and drape of the cervical region, the C7/T1 translaminar space was identified fluoroscopically. The skin was anesthetized via a 25-gauge 1.5-inch needle with 1% lidocaine solution. At this point, a 25-gauge, 2.5-inch short bevel spinal needle was atraumatically introduced and advanced under fluoroscopic guidance into epidural space at the C7/T1 translaminar space. Depth was confirmed on lateral view. Radiological data, including multiple fluoroscopic views of the cervical spine, reveal a spinal needle at the C7/T1 translaminar space. Lateral views then show placement of the needle in the epidural space. Subsequent views show contrast material flowing superiorly and inferiorly in the epidural space. DSA fluoroscopy with live contrast injection, once again, confirmed no vascular or intrathecal uptake. At this point, using loss of resistance technique with saline and air, the epidural space was entered. Following negative aspiration, injection of approximately 1.5 cc of Isovue-[id number] with live fluoroscopy in the AP view confirmed epidural flow in the epidural space without vascular or intrathecal uptake observed. Subsequently, a test dose of 1cc of 1% lidocaine solution was injected and patient was observed for two minutes without signs or symptoms of complications, including abdominal pain, shortness of breath, bilateral upper or lower extremity weakness, nausea and vomiting, prior to steroid injection. At this point, 3cc or 30mg of dexamethasone was then injected without incident. The patient tolerated the procedure well without signs or symptoms of complications prior to transfer to the recovery area for further monitoring The patient was then transferred to the recovery area where they were observed for an appropriate period of time after the injection. The patient reported a VAS score of 6 prior to the procedure and a post-procedure VAS of 0 POST OP INSTRUCTIONS The patient was provided a Pain Log to continue to record the patient's response to the target-specific procedure prior to the patient's follow-up visit with the referring physician. Additionally, specific post-injection care instructions and a contact number to our office were provided if concerns arise regarding possible complications associated with the procedure are suspected.
== END 2022-03-03 10:48 | disposition home or self-care (01) ==
LOC: RAD 08:44
PROVIDERS: PCP Family Medicine; Referring Provider Physical Medicine & Rehabilitation; Visit Provider Physical Medicine & Rehabilitation
DX: M48.02 Spinal stenosis, cervical region (principal); M50.13 Cervical disc disorder with radiculopathy, cervicothoracic region
CPT/HCPCS: 62321; 99152; J1100; J2250

== ENCOUNTER → 2022-06-16 09:47 | Outpatient (CLI) | payer MEDICARE, OTHER, SELFPAY ==
[2022-06-16 20:03] LABS: Add Manual Diff / Slide Review NO; Basophils Absolute Auto 100 /uL (0-100); Eosinophils Absolute Auto 100 /uL (0-450); Eosinophils Percent Auto 1.8 % (2-4); Hematocrit 40.1 % (36-46); Hemoglobin 13.7 g/dL (12.0-16.0); Lymphocytes Absolute Auto 900 /uL (1100-4500); Lymphocytes Percent Auto 14.8 % (25-40); Mean Corpuscular HGB Conc 34.3 % (30-36); Mean Corpuscular Hemoglobin 32.2 PG (26-34); Monocytes Absolute Auto 500 /uL (0-900); Monocytes Percent Auto 8.3 % (3-14); Neutrophils Absolute Auto 4400 /uL (1500-7000); Neutrophils Percent Auto 74.1 % (50-75); Platelet Count 301 X10^3/uL (150-400); Red Blood Cell Count 4.27 X10^6/uL (4.0-5.2); Red Cell Distribution Width 12.3 % (11.6-14.8)
[2022-06-16 20:09] LABS: Alanine Aminotransferase 24 IU/L (<35); Albumin 3.8 g/dL (3.5-5.0); Albumin Globulin Ratio 1.5 (1.0-2.8); Alkaline Phosphatase 100 U/L (38-126); Aspartate Aminotransferase 34 IU/L (14-36); BUN Creatinine Ratio 31.3 (6-22); Bilirubin Total 0.5 mg/dL (0.2-1.3); Blood Urea Nitrogen 26 mg/dL (7-17); Calcium 8.9 mg/dL (8.4-10.2); Carbon Dioxide 29 mmol/L (22-32); Chloride 102 mmol/L (98-107); Estimated Glomerular Filt Rate > 60 mL/min (>60); Globulin 2.6 g/dL (1.7-4.1); Glucose 92 mg/dL (80-110); HEMOLYSIS < 15 (0-50); Potassium 4.1 mmol/L (3.4-5.1); Sodium 137 mmol/L (137-145); Total Protein 6.4 g/dL (6.3-8.2)
[2022-06-16 20:30] LABS: Vitamin D 25 Hydroxy (D3) 20.6 ng/mL (30.0-100.0)
[2022-06-16 20:44] LABS: TSH w/ Reflex to FT4 1.45 uIU/mL (0.47-4.68)
[2022-06-20 17:53] LABS: Albumin 3.7 g/dL (2.9-4.4); Alpha-1-Globulin 0.2 g/dL (0.0-0.4); Alpha-2-Globulin 0.6 g/dL (0.4-1.0); Gamma Globulin 0.6 g/dL (0.4-1.8); Globulin Total 2.4 g/dL (2.2-3.9); Protein, Total 6.1 g/dL (6.0-8.5)
== END ==
PROVIDERS: PCP Family Medicine; Visit Provider Family Medicine
DX: R20.2 Paresthesia of skin (principal); R29.898 Other symptoms and signs involving the musculoskeletal system; E55.9 Vitamin D deficiency, unspecified; M79.601 Pain in right arm; M79.602 Pain in left arm; R11.0 Nausea; R53.83 Other fatigue; R63.4 Abnormal weight loss; G95.9 Disease of spinal cord, unspecified
CPT/HCPCS: 80053; 82306; 84155; 84165; 84443; 85025

== ENCOUNTER → 2022-08-18 11:16 | Outpatient (CLI) | payer MEDICARE, OTHER, SELFPAY | PROVIDERS: PCP Family Medicine; Referring Provider Family Medicine; Visit Provider Family Medicine | DX: R63.4 Abnormal weight loss (principal); Z78.0 Asymptomatic menopausal state; Z13.820 Encounter for screening for osteoporosis; M85.88 Other specified disorders of bone density and structure, other site; Z87.311 Personal history of (healed) other pathological fracture; Z90.710 Acquired absence of both cervix and uterus | CPT/HCPCS: 77080; 77081 ==

== ENCOUNTER → 2022-10-27 13:05 | Outpatient (CLI) | payer MEDICARE, OTHER, SELFPAY ==
[2022-10-27 20:30] LABS: Add Manual Diff / Slide Review NO; Basophils Absolute Auto 100 /uL (0-100); Basophils Percent Auto 1.2 % (0-2); Eosinophils Absolute Auto 100 /uL (0-450); Hematocrit 41.3 % (36-46); Hemoglobin 13.5 g/dL (12.0-16.0); Lymphocytes Absolute Auto 1100 /uL (1100-4500); Lymphocytes Percent Auto 15.5 % (25-40); Mean Corpuscular HGB Conc 32.6 % (30-36); Mean Corpuscular Hemoglobin 30.8 PG (26-34); Mean Corpuscular Volume 94.6 fL (80-100); Monocytes Absolute Auto 700 /uL (0-900); Monocytes Percent Auto 9.3 % (3-14); Neutrophils Absolute Auto 5300 /uL (1500-7000); Platelet Count 290 X10^3/uL (150-400); Red Blood Cell Count 4.37 X10^6/uL (4.0-5.2); Red Cell Distribution Width 12.5 % (11.6-14.8); White Blood Cell Count 7.3 X10^3/uL (4.5-11.0)
[2022-10-27 20:44] LABS: Vitamin D 25 Hydroxy (D3) 42.3 ng/mL (30.0-100.0)
== END ==
PROVIDERS: PCP Family Medicine; Visit Provider Family Medicine
DX: R29.898 Other symptoms and signs involving the musculoskeletal system (principal); M81.0 Age-related osteoporosis without current pathological fracture; E55.9 Vitamin D deficiency, unspecified; R63.4 Abnormal weight loss
CPT/HCPCS: 82306; 85025

== ENCOUNTER → 2023-04-18 12:30 | Outpatient (CLI) | payer MEDICARE, OTHER, SELFPAY | PROVIDERS: PCP Family Medicine; Visit Provider Physician Assistant | DX: T14.8XXA Other injury of unspecified body region, initial encounter (principal); C80.1 Malignant (primary) neoplasm, unspecified | CPT/HCPCS: 87070; 87075; 87205 ==

== ENCOUNTER → 2023-08-30 12:20 | Outpatient (CLI) | payer MEDICARE, OTHER, SELFPAY ==
--- NOTE | 2023-08-30 | DI.RAD.S_ITS ---
PROCEDURE: XR SHOULDER LT MIN 2V INDICATIONS: SHOULDER PAIN TECHNIQUE: 3 views of the shoulder were acquired. COMPARISON: None. FINDINGS: Bones: No fractures or dislocations. No suspicious bony lesions. There are small acromioclavicular and glenohumeral osteophytes. Visualized ribs appear intact. Soft tissues: No suspicious soft tissue calcifications. IMPRESSION: No acute bony abnormality. Degenerative change. Dictated by: Jenelle Grove M.D. on 08/30/2023 at 14:57 Approved by: Jenelle Grove M.D. on 08/30/2023 at 14:57
--- NOTE | 2023-08-30 | DI.RAD.S_ITS ---
PROCEDURE: XR HAND RT MIN 3V INDICATIONS: HAND SWELLING TECHNIQUE: 3 views of the hand(s) acquired. COMPARISON: None. FINDINGS: Bones: No acute fracture or dislocation. Severe osteoarthritic changes are present within the interphalangeal joints. There is also severe 1st CMC joint osteoarthritis. The carpal joints are preserved. Soft tissues: No suspicious soft tissue calcifications. IMPRESSION: Radiographic findings most consistent with severe osteoarthritis. Dictated by: Jenelle Grove M.D. on 08/30/2023 at 14:57 Approved by: Jenelle Grove M.D. on 08/30/2023 at 14:58
[2023-08-30 13:20] LABS: Add Manual Diff / Slide Review NO; Basophils Absolute Auto 100 /uL (0-100); Basophils Percent Auto 1.2 % (0-2); Eosinophils Absolute Auto 0 /uL (0-450); Eosinophils Percent Auto 0.5 % (2-4); Hematocrit 40.3 % (36-46); Hemoglobin 13.5 g/dL (12.0-16.0); Lymphocytes Absolute Auto 1400 /uL (1100-4500); Lymphocytes Percent Auto 23.3 % (25-40); Mean Corpuscular HGB Conc 33.6 % (30-36); Mean Corpuscular Hemoglobin 31.4 PG (26-34); Mean Corpuscular Volume 93.3 fL (80-100); Monocytes Absolute Auto 400 /uL (0-900); Monocytes Percent Auto 7.2 % (3-14); Neutrophils Absolute Auto 4100 /uL (1500-7000); Neutrophils Percent Auto 67.8 % (50-75); Platelet Count 303 X10^3/uL (150-400); Red Blood Cell Count 4.32 X10^6/uL (4.0-5.2); Red Cell Distribution Width 12.8 % (11.6-14.8)
[2023-08-30 13:42] LABS: HEMOLYSIS < 15 (0-50); Iron 78 ug/dL (37-170)
[2023-08-30 13:53] LABS: Percent Iron Saturation 21 % (15-50); Total Iron Binding Capacity 365 ug/dL (265-497); Transferrin 317 mg/dL (206-381)
[2023-08-30 13:54] LABS: Alanine Aminotransferase 19 IU/L (<35); Albumin 4.1 g/dL (3.5-5.0); Albumin Globulin Ratio 1.5 (1.0-2.8); Alkaline Phosphatase 86 U/L (38-126); Aspartate Aminotransferase 28 IU/L (14-36); BUN Creatinine Ratio 34.2 (6-22); Bilirubin Total 0.7 mg/dL (0.2-1.3); Blood Urea Nitrogen 27 mg/dL (7-17); C-Reactive Protein Quant < 0.5 mg/dL (<1.0); Calcium 9.7 mg/dL (8.4-10.2); Carbon Dioxide 29 mmol/L (22-32); Chloride 102 mmol/L (98-107); Cholesterol 166 mg/dL (140-199); Estimated Glomerular Filt Rate > 60 mL/min (>60); Globulin 2.7 g/dL (1.7-4.1); Glucose 93 mg/dL (80-110); HDL Cholesterol 76 mg/dL (40-60); HEMOLYSIS < 15 (0-50); LDL Cholesterol Calculated 78 mg/dL (<100); Potassium 4.1 mmol/L (3.4-5.1); Sodium 138 mmol/L (137-145); Total Protein 6.8 g/dL (6.3-8.2); Triglycerides 61 mg/dL (35-150)
[2023-08-30 14:13] LABS: TSH w/ Reflex to FT4 1.44 uIU/mL (0.47-4.68)
[2023-08-30 14:21] LABS: Ferritin 17 ng/mL (11-264)
[2023-08-30 14:48] LABS: Erythrocyte Sedimentation Rate 6 MM/HR (0-20)
[2023-08-30 14:53] LABS: Folate 11.7 ng/mL (2.76-20.0); Vitamin B12 275 pg/mL (239-931)
[2023-08-31 06:36] LABS: RPR Screen Non Reactive (Non Reactive)
== END ==
PROVIDERS: PCP Nurse Practitioner Family; Referring Provider Nurse Practitioner Family; Visit Provider Nurse Practitioner Family
DX: M18.11 Unilateral primary osteoarthritis of first carpometacarpal joint, right hand (principal); M25.512 Pain in left shoulder; R22.31 Localized swelling, mass and lump, right upper limb; F03.90 Unspecified dementia, unspecified severity, without behavioral disturbance, psychotic disturbance, mood disturbance, and anxiety; Z86.2 Personal history of diseases of the blood and blood-forming organs and certain disorders involving the immune mechanism; Z13.220 Encounter for screening for lipoid disorders
CPT/HCPCS: 36415; 73030; 73130; 80053; 80061; 82607; 82728; 82746; 83540; 83550; 84443; 85025; 85651; 86140; 86592; 87086

== ENCOUNTER → 2023-10-03 13:12 | Outpatient (CLI) | payer MEDICARE, OTHER, SELFPAY ==
--- NOTE | 2023-10-03 | DI.MRI.S_ITS ---
PROCEDURE: MR HEAD/BRAIN WO CON INDICATIONS: Unspecified dementia TECHNIQUE: Non-contrast axial T1 spin echo, axial T2 fast spin echo, sagittal and axial FLAIR, coronal T2 fast spin echo, axial gradient echo, axial diffusion and ADC through the brain. COMPARISON: None. FINDINGS: Image quality: Excellent. CSF spaces: Ventricles appear symmetric in size and shape. Basal cisterns are patent. No extra-axial fluid collections. Brain: No intracranial bleeds or mass effects. There is cerebral volume loss for age. There are periventricular and deep white matter chronic small vessel ischemic changes. Brainstem appears normal. Diffusion-weighted images show no acute infarct. No chronic ischemic insults. Normal intravascular flow voids are present. Skull and face: Calvarial bone marrow is normal in signal. Bilateral lens replacements. Otherwise, the orbits are unremarkable. Sinuses: Right maxillary sinus mucous retention cyst. Otherwise, the paranasal sinuses mastoid air cells are clear. IMPRESSION: Mild age-related global volume loss and chronic microvascular ischemic changes. No acute intracranial abnormalities. Dictated by: Tahir Spencer M.D. on 10/03/2023 at 14:16 Approved by: Tahir Spencer M.D. on 10/03/2023 at 14:20
== END ==
PROVIDERS: PCP Nurse Practitioner Family; Referring Provider Nurse Practitioner Family; Visit Provider Nurse Practitioner Family
DX: F03.90 Unspecified dementia, unspecified severity, without behavioral disturbance, psychotic disturbance, mood disturbance, and anxiety (principal)
CPT/HCPCS: 70551

== ENCOUNTER 2023-10-12 15:08 | Emergency (ER) | payer MEDICARE, OTHER, SELFPAY ==
[2023-10-12 15:20] VITALS: PULSE 70; RESP 18; O2SAT 96
[2023-10-12 15:26] VITALS: BP 142/67; PULSE 71; RESP 16; TEMP 37.1; O2SAT 97; BMI 20.8
--- NOTE | 2023-10-12 15:26 | DI.RAD.S_ITS ---
PROCEDURE: XR CHEST 1V INDICATIONS: chest pain TECHNIQUE: One view of the chest was acquired. COMPARISON: None. FINDINGS: Surgical changes and devices: None. Lungs and pleura: Lungs are clear. No pleural effusions or pneumothorax. Mediastinum: Mediastinal contours appear normal. Heart size is normal. Bones and chest wall: No suspicious bony lesions. Overlying soft tissues appear unremarkable. IMPRESSION: No acute process. Dictated by: Xin Tena M.D. on 10/12/2023 at 15:49 Approved by: Xin Tena M.D. on 10/12/2023 at 15:49
[2023-10-12 15:45] LABS: Add Manual Diff / Slide Review NO; Basophils Absolute Auto 100 /uL (0-100); Basophils Percent Auto 1.6 % (0-2); Eosinophils Absolute Auto 100 /uL (0-450); Eosinophils Percent Auto 1.3 % (2-4); Hematocrit 39.9 % (36-46); Hemoglobin 13.5 g/dL (12.0-16.0); Lymphocytes Absolute Auto 1200 /uL (1100-4500); Lymphocytes Percent Auto 12.8 % (25-40); Mean Corpuscular Hemoglobin 31.3 PG (26-34); Mean Corpuscular Volume 92.2 fL (80-100); Monocytes Absolute Auto 600 /uL (0-900); Monocytes Percent Auto 6.4 % (3-14); Neutrophils Absolute Auto 7100 /uL (1500-7000); Neutrophils Percent Auto 77.9 % (50-75); Platelet Count 299 X10^3/uL (150-400); Red Blood Cell Count 4.32 X10^6/uL (4.0-5.2); Red Cell Distribution Width 12.7 % (11.6-14.8); White Blood Cell Count 9.1 X10^3/uL (4.5-11.0)
[2023-10-12 15:50] LABS: Prothrombin Time 11.8 SECONDS (9.4-12.5)
[2023-10-12 15:53] LABS: PTT Partial Thromboplastin Tim 31 SECONDS (25.1-36.5)
[2023-10-12 16:13] LABS: Alanine Aminotransferase 20 IU/L (<35); Albumin Globulin Ratio 1.4 (1.0-2.8); Alkaline Phosphatase 91 U/L (38-126); BUN Creatinine Ratio 29.9 (6-22); Bilirubin Total 0.6 mg/dL (0.2-1.3); Blood Urea Nitrogen 20 mg/dL (7-17); Calcium 9.2 mg/dL (8.4-10.2); Carbon Dioxide 25 mmol/L (22-32); Chloride 103 mmol/L (98-107); Creatine Kinase 165 U/L (30-135); Estimated Glomerular Filt Rate > 60 mL/min (>60); Globulin 2.8 g/dL (1.7-4.1); Glucose 85 mg/dL (80-110); HEMOLYSIS 17 (0-50); Lipase 150 U/L (23-300); Magnesium 2.3 mg/dL (1.6-2.3); Potassium 3.9 mmol/L (3.4-5.1); Sodium 136 mmol/L (137-145); Total Protein 6.8 g/dL (6.3-8.2)
[2023-10-12 16:19] VITALS: PULSE 69; RESP 30; O2SAT 99
--- NOTE | 2023-10-12 16:20 | ED.CHESTPAIN ---
HPI - Chest Pain General Chief Complaint: Chest Pain Stated Complaint: Near sycope,chest pain/aphasia (both resolved) Time Seen by Provider: 10/12/23 15:45 Source: patient and EMS Mode of arrival: EMS Limitations: no limitations History of Present Illness HPI narrative: Patient is a 77-year-old female who is here for evaluation of an episode that occurred earlier today. She states that she was at her normal state of health. Had a fairly sudden onset of what she describes as a pain/pressure/palpitations in the center of her chest. She became lightheaded. She states the symptoms lasted approximately 15 seconds and then completely resolved. She currently is asymptomatic. Upon further questioning she has had symptoms like this in the past. It has happened a couple times over the past several weeks/months. Each time has come on suddenly and then completely resolved. At 1 point it sounds like that she did have a syncopal episode associated with this. She has not had any workup for this. Never had a heart attack. Never had a stroke. Not on anticoagulation. No abdominal pain or nausea vomiting or fevers. Related Data Previous Rx's Medication Instructions Recorded alendronate 70 mg tablet 70 mg PO QWEEK #12 tabs 11/11/22 mupirocin 2 % topical ointment 1 applic topical BID #22 grams 11/18/22 Allergies Allergy/AdvReac Type Severity Reaction Status Date / Time amoxicillin [AMOXICILLIN] Allergy Intermediate BUMPS IN Verified 10/12/23 15:33 MY MOUTH, NAUSEA, DIZZINESS codeine [CODEINE] Allergy Intermediate BUMPS IN Verified 10/12/23 15:33 MY MOUTH, NAUSEA, DIZZINESS fluorouracil Allergy Intermediate BLISTERS Verified 10/12/23 15:33 garlic [GARLIC] Allergy Intermediate BUMPS IN Verified 10/12/23 15:33 MY MOUTH, LIPS TINGLE onion [ONION] Allergy Intermediate BUMPS IN Verified 10/12/23 15:33 MOUTH, LIPS TINGLING mercury (elemental) Allergy Unknown metal Verified 10/12/23 15:33 [MERCURY (ELEMENTAL)] poisoning gabapentin AdvReac Severe felt Verified 10/12/23 15:33 suicidal METAL Allergy Intermediate NON-HEALING Uncoded 10/12/23 15:33 REACTION W/EAR PIERCING-CHILDHOOD Gluten AdvReac Severe GI BLOATING Uncoded 10/12/23 15:33 Patient History Medical History Cervical myelopathy Mumps Chicken pox Skin cancer Screening for colon cancer Screening, lipid Skin exam, screening for cancer 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 Pelvic relaxation Spinal stenosis, lumbar region without neurogenic claudication Surgical History (Updated 06/16/22 @ 09:31 by Marciano Matt MD) Anesthesia S/P hernia repair S/P hysterectomy S/P hip replacement (~2018) Social History household members: none Smoking Status: Never smoker alcohol intake: never Smoking Status: Never smoker alcohol intake frequency: 0-2 drinks per day Substance Use Type: does not use Exam Initial Vital Signs Initial Vital Signs: Vital Signs Pulse Rate 70 10/12/23 15:20 Respiratory Rate 18 10/12/23 15:20 Pulse Oximetry 96 10/12/23 15:20 Oxygen Delivery Method Room Air 10/12/23 15:20 Const General: cooperative, comfortable and No ill appearing HENMT Head: normal to inspection and normocephalic Resp Effort & Inspection: normal respiratory effort Auscultation: clear to auscultation bilaterally Cardio Rate: regular rate Rhythm: regular rhythm Heart Sounds: no murmurs GI Inspection: normal to inspection and non-distended Skin General: no rashes or lesions noted Neuro General: patient alert, patient awake, patient oriented x3 and moves all extremities Extrem General: No edema Scores HEART Score Heart Score history: Slightly Suspicious Heart Score EKG: Non-Specific repolarization disturbance Heart Score Age: > or = 65 years old Heart Score risk factors: 1-2 risk factors Heart Score troponin: < or = to normal limit Heart Score Total: 4 Course Orders Ordered: ED Orders 10/12/23 15:26 XR chest 1V Stat EKG-12 Lead Stat 10/12/23 15:30 Complete Blood Count AUTO DIFF Stat Comprehensive Metabolic Panel Stat Lipase Stat Magnesium Stat PTT Partial Thromboplastin Deny Stat Prothrombin Time INR Stat Troponin & CK Cardiac Panel Stat Discontinued Medications Aspirin (Aspirin 81 Mg Chew Tab) 324 mg PO NOW ONE Stop: 10/12/23 15:27 Last Admin: 10/12/23 16:44 Dose: Not Given Documented By: SPF Vital Signs Vital signs: Vital Signs - 8 hr 10/12/23 15:20 10/12/23 15:26 10/12/23 16:19 Temperature 98.7 F Pulse Rate 70 71 69 Respiratory Rate 18 16 30 H Blood Pressure 142/67 H Pulse Oximetry 96 97 99 Oxygen Delivery Method Room Air Room Air Room Air 10/12/23 16:30 10/12/23 16:30 10/12/23 17:26 Temperature Pulse Rate 66 73 Respiratory Rate 24 Blood Pressure 141/65 H 111/60 Pulse Oximetry 96 97 Oxygen Delivery Method Room Air Room Air MDM - Chest Pain Lab Data Attestation: I reviewed the patient's lab results. 10/12/23 15:30 10/12/23 15:30 Labs: Lab Results 10/12/23 Range/Units 15:30 WBC 9.1 (4.5-11.0) X10^3/uL RBC 4.32 (4.0-5.2) X10^6/uL Hgb 13.5 (12.0-16.0) g/dL Hct 39.9 (36-46) % MCV 92.2 (80-100) fL MCH 31.3 (26-34) PG MCHC 34.0 (30-36) % RDW 12.7 (11.6-14.8) % Plt Count 299 (150-400) X10^3/uL Neut % (Auto) 77.9 H (50-75) % Lymph % (Auto) 12.8 L (25-40) % Clayton % (Auto) 6.4 (3-14) % Eos % (Auto) 1.3 L (2-4) % Baso % (Auto) 1.6 (0-2) % Neut # (Auto) 7100 H (0554-7715) /uL Lymph # (Auto) 1200 (7194-4906) /uL Clayton # (Auto) 600 (0-900) /uL Eos # (Auto) 100 (0-450) /uL Baso # (Auto) 100 (0-100) /uL PT 11.8 (9.4-12.5) SECONDS INR 1.0 (0.9-1.3) APTT 31 (25.1-36.5) SECONDS Sodium 136 L (137-145) mmol/L Potassium 3.9 (3.4-5.1) mmol/L Chloride 103 (98-107) mmol/L Carbon Dioxide 25 (22-32) mmol/L BUN 20 H (7-17) mg/dL Creatinine 0.67 (0.52-1.04) mg/dL Estimated GFR > 60 (>60) mL/min BUN/Creatinine Ratio 29.9 H (6-22) Glucose 85 (80-110) mg/dL Calcium 9.2 (8.4-10.2) mg/dL Magnesium 2.3 (1.6-2.3) mg/dL Total Bilirubin 0.6 (0.2-1.3) mg/dL AST TNP ALT 20 (<35) IU/L Alkaline Phosphatase 91 (38-126) U/L Total Creatine Kinase 165 H (30-135) U/L Troponin I < 0.012 (0.01-0.034) ng/mL Total Protein 6.8 (6.3-8.2) g/dL Albumin 4.0 (3.5-5.0) g/dL Globulin 2.8 (1.7-4.1) g/dL Albumin/Globulin Ratio 1.4 (1.0-2.8) Lipase 150 (23-300) U/L Imaging Data Chest x-ray: Radiologist's Impression: PROCEDURE: XR CHEST 1V INDICATIONS: chest pain TECHNIQUE: One view of the chest was acquired. COMPARISON: None. FINDINGS: Surgical changes and devices: None. Lungs and pleura: Lungs are clear. No pleural effusions or pneumothorax. Mediastinum: Mediastinal contours appear normal. Heart size is normal. Bones and chest wall: No suspicious bony lesions. Overlying soft tissues appear unremarkable. IMPRESSION: No acute process. ECG Data Attestation: I personally reviewed and interpreted this ECG as follows: Interpretation: Sinus rhythm Ventricular rate is 62 Normal axis Normal QRS Normal QTC Nonspecific ST T wave changes MDM Narrative Medical decision making narrative: Patient is now asymptomatic. Nonspecific changes on her EKG. Troponin is negative. Chest x-ray is unremarkable. Given her presentation today I have a higher suspicion that her symptoms are an arrhythmia rather than ACS. Her symptoms come on suddenly and lasts for seconds then resolved. She gets lightheaded with them. It also appears that 1 point she may have passed out. She has never had a Holter monitor. Had a discussion with her and her family. We discussed staying for a 2nd troponin versus discharge home and following up with her primary doctor to discuss a Holter monitor and stress testing. We discussed the risks and benefits of each of these. Patient expressed understanding of this. She states she would like to be discharged home so that she can follow up her primary doctor. She already has an appointment scheduled in approximately 10 days from now. She was given strict return precautions. She expressed understanding and agreement. Discharge Plan Departure Patient Disposition: Home Clinical Impression: Atypical chest pain Instructions: DI for Atypical Chest Pain Activity Restrictions/Additional Instructions: Recommend that you continue to take all of your medications as directed. Recommend that you contact your primary doctor to discuss the indications for a Holter monitor and a stress test. Return to the emergency department for new or worsening symptoms. Prescriptions: No Action alendronate 70 mg tablet 70 mg PO QWEEK Qty: 12 3RF mupirocin 2 % ointment 1 applic topical BID Qty: 22 0RF Referrals: Fatuma Killian RN [Primary Care Provider] - Stand Alone Forms: Patient Portal/API
[2023-10-12 16:24] LABS: Troponin I < 0.012 ng/mL (0.01-0.034)
[2023-10-12 16:30] VITALS: BP 141/65; PULSE 66; RESP 24; O2SAT 96
--- NOTE | 2023-10-12 16:41 | PC.NURSE ---
Pt's family member at bedside states patient has been having increased memory issues and they are collaborating with PCP to diagnose the issue. Pt recently had a brain MRI. Pt denies chest pain or SOB now. States she has had multiple episodes of chest tightness and passing out over the past 6 months.
[2023-10-12 17:26] VITALS: BP 111/60; PULSE 73; O2SAT 97
[2023-10-13 15:16] LABS: Aspartate Aminotransferase 37 IU/L (14-36)
== END 2023-10-12 17:26 | disposition home or self-care (01) ==
PROVIDERS: Emergency Provider Emergency Medicine; PCP Nurse Practitioner Family
DX: R07.89 Other chest pain (principal)
CPT/HCPCS: 36415; 71045; 80053; 82550; 83690; 83735; 84484; 85025; 85610; 85730; 93005; 99283; 99284

== ENCOUNTER → 2024-01-22 13:03 | Outpatient (CLI) | payer MEDICARE, OTHER, SELFPAY ==
[2024-01-22 19:32] LABS: Alanine Aminotransferase 34 IU/L (<35); Albumin 3.8 g/dL (3.5-5.0); Albumin Globulin Ratio 1.6 (1.0-2.8); Alkaline Phosphatase 113 U/L (38-126); Aspartate Aminotransferase 34 IU/L (14-36); BUN Creatinine Ratio 43.7 (6-22); Bilirubin Total 0.4 mg/dL (0.2-1.3); Blood Urea Nitrogen 31 mg/dL (7-17); Carbon Dioxide 29 mmol/L (22-32); Chloride 106 mmol/L (98-107); Estimated Glomerular Filt Rate > 60 mL/min (>60); Globulin 2.4 g/dL (1.7-4.1); Glucose 80 mg/dL (80-110); HEMOLYSIS < 15 (0-50); Potassium 4.3 mmol/L (3.4-5.1); Sodium 139 mmol/L (137-145); Total Protein 6.2 g/dL (6.3-8.2)
[2024-01-22 20:37] LABS: Folate 12.5 ng/mL (2.76-20.0); Vitamin B12 884 pg/mL (239-931)
== END ==
PROVIDERS: PCP Nurse Practitioner Family
DX: E53.8 Deficiency of other specified B group vitamins (principal); R03.0 Elevated blood-pressure reading, without diagnosis of hypertension
CPT/HCPCS: 80053; 82607; 82746

== ENCOUNTER 2025-07-25 11:53 | Emergency (ER) | payer MEDICARE, OTHER, SELFPAY ==
[2025-07-25] VITALS (15 sets, daily range): BP systolic 116–162; BP diastolic 59–70; PULSE 52–108; RESP 16–28; TEMP 36.2; O2SAT 97–100; BMI 17.4
--- NOTE | 2025-07-25 12:21 | EKG_ITS ---
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
[2025-07-25 12:57] LABS: Add Manual Diff / Slide Review NO; Hematocrit 43.1 % (36-46); Hemoglobin 14.8 g/dL (12.0-16.0); Lymphocytes Absolute Auto 1100 /uL (1100-4500); Mean Corpuscular HGB Conc 34.3 % (30-36); Mean Corpuscular Hemoglobin 32.6 PG (26-34); Mean Corpuscular Volume 95.1 fL (80-100); Platelet Count 246 X10^3/uL (150-400)
[2025-07-25 13:08] LABS: Alanine Aminotransferase 35 IU/L (<35); Albumin 4.6 g/dL (3.5-5.0); Albumin Globulin Ratio 1.5 (1.0-2.8); Alkaline Phosphatase 96 U/L (38-126); Blood Urea Nitrogen 23 mg/dL (7-17); Calcium 9.2 mg/dL (8.4-10.2); Carbon Dioxide 26 mmol/L (22-32); Chloride 105 mmol/L (98-107); Estimated Glomerular Filt Rate > 60 mL/min (>60); Globulin 3.0 g/dL (1.7-4.1); Glucose 91 mg/dL (70-99); HEMOLYSIS 48 (0-50); Lipase 81 U/L (23-300); Potassium 3.9 mmol/L (3.4-5.1); Sodium 140 mmol/L (137-145); Total Protein 7.6 g/dL (6.3-8.2)
--- NOTE | 2025-07-25 15:45 | ED.GENADULT ---
HPI - General Adult General Chief complaint: Abdominal Pain Stated complaint: Abd pain, dairrhea, nausea, dizziness Time Seen by Provider: 07/25/25 15:05 Source: patient Mode of arrival: Ambulatory History of Present Illness HPI narrative: 79-year-old woman with osteoporosis as her only listed medical problem, on alendronate and no other medications presents with intermittent abdominal pain associated with nonbloody diarrhea. No vomiting. No chest pain or palpitations. No fevers no dysuria. In 2017 she had an incarcerated inguinal hernia that subsequently led to a hemicolectomy. She lives with her granddaughter and the granddaughter indicates she has been having intermittent pain worse with food for up to 3 months now significantly worse today. Patient notes that she is quite hungry however pain is always worse when she eats. Related Data Previous Rx's ?Medication ?Instructions ?Recorded alendronate 70 mg tablet 70 mg PO QWEEK #12 tabs 11/11/22 mupirocin 2 % topical ointment 1 applic topical BID #22 grams 11/18/22 Allergies Allergy/AdvReac Type Severity Reaction Status Date / Time amoxicillin (AMOXICILLIN) Allergy Intermediate BUMPS IN Verified 07/25/25 12:16 MY MOUTH, NAUSEA, DIZZINESS codeine (CODEINE) Allergy Intermediate BUMPS IN Verified 07/25/25 12:16 MY MOUTH, NAUSEA, DIZZINESS fluorouracil Allergy Intermediate BLISTERS Verified 07/25/25 12:16 garlic (GARLIC) Allergy Intermediate BUMPS IN Verified 07/25/25 12:16 MY MOUTH, LIPS TINGLE onion (ONION) Allergy Intermediate BUMPS IN Verified 07/25/25 12:16 MOUTH, LIPS TINGLING mercury (elemental) (MERCURY Allergy Unknown metal Verified 07/25/25 12:16 (ELEMENTAL)) poisoning gabapentin AdvReac Severe felt Verified 07/25/25 12:16 suicidal Review of Systems Review of Systems Narrative: Pertinent positive and negative findings as per HPI Patient History Medical History Cervical myelopathy Mumps Chicken pox Skin cancer Screening for colon cancer Screening, lipid Skin exam, screening for cancer 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 Pelvic relaxation Spinal stenosis, lumbar region without neurogenic claudication Surgical History Anesthesia S/P hernia repair S/P hysterectomy S/P hip replacement (~2018) Social History household members: none Smoking Status: Never smoker alcohol intake: never Smoking Status: Never smoker alcohol intake frequency: 0-2 drinks per day Exam Initial Vital Signs Initial Vital Signs: Vital Signs Temperature 97.2 F L 07/25/25 12:12 Pulse Rate 57 L 07/25/25 12:12 Respiratory Rate 18 07/25/25 12:12 Blood Pressure 140/67 07/25/25 12:12 Pulse Oximetry 99 07/25/25 12:12 Oxygen Delivery Method Room Air 07/25/25 12:12 General: Frail-appearing, in obvious pain but able to cooperate fully HEENT: Moist mucous membranes, normal sclera with reactive pupils, Respiratory: Lungs are clear to auscultation, no wheezing no rales no rhonchi. Full and symmetrical air movement Cardiac: Regular rate and rhythm no murmurs no bruits Abdomen: Guarding, borborygmi, significant tenderness throughout the entire abdomen with developing rebound. She is quite thin. Skin: Warm and dry, no rashes, 6 mm in diameter presumed basal cell carcinoma on the left anterior chest wall Neurologic: Grossly neurologically intact with no obvious asymmetries or abnormalities Extremities: No trauma, well perfused Psych: Cooperative, appropriate insight and affect Course Orders Ordered: ED Orders 07/25/25 16:33 CT abdomen pelvis w con Stat 07/25/25 17:11 Lactate (Lactic Acid) Stat Hydromorphone HCl (Hydromorphone Hcl 0.5 Mg/0.5 Ml Syringe) 0.5 mg IV Q15MIN PRN PRN Reason: Pain, Ondansetron HCl (Ondansetron 4 Mg/2 Ml Inj) 4 mg IV NOW PRN PRN Reason: Nausea And Vomiting Ondansetron HCl (Ondansetron 4 Mg Odt) 4 mg PO NOW PRN PRN Reason: Nausea And Vomiting Discontinued Medications Sodium Chloride (Normal Saline 0.9%) 1,000 mls @ 1,000 mls/hr IV BOLUS ONE Stop: 07/25/25 17:31 Last Infusion: 07/25/25 18:12 Dose: Infused Documented By: Admin: 07/25/25 17:07 Dose: 1,000 mls/hr Documented By: DAV Vital Signs Vital signs: Vital Signs - 8 hr 07/25/25 15:11 07/25/25 15:30 07/25/25 15:30 Pulse Rate 60 61 Respiratory Rate 16 Blood Pressure 135/70 Pulse Oximetry 98 99 07/25/25 16:00 07/25/25 16:00 07/25/25 16:30 Pulse Rate 63 59 L Respiratory Rate 16 Blood Pressure 134/59 L Pulse Oximetry 99 99 07/25/25 16:30 07/25/25 17:00 07/25/25 17:00 Pulse Rate 61 Respiratory Rate 20 Blood Pressure 116/63 147/70 H Pulse Oximetry 100 07/25/25 17:30 07/25/25 17:30 07/25/25 18:00 Pulse Rate 53 L 52 L Respiratory Rate 21 20 Blood Pressure 133/68 Pulse Oximetry 100 99 07/25/25 18:00 07/25/25 18:30 07/25/25 18:30 Pulse Rate 55 L Respiratory Rate 28 H Blood Pressure 134/62 141/67 H Pulse Oximetry 97 07/25/25 19:00 07/25/25 19:00 07/25/25 19:30 Pulse Rate 59 L 108 H Respiratory Rate 23 22 Blood Pressure 162/69 H Pulse Oximetry 98 99 07/25/25 20:00 07/25/25 20:30 07/25/25 20:54 Pulse Rate 55 L 56 L 55 L Respiratory Rate 20 24 24 Blood Pressure Pulse Oximetry 99 98 07/25/25 20:54 Pulse Rate Respiratory Rate Blood Pressure 154/69 H Pulse Oximetry Medical Decision Making Lab Data 07/25/25 12:20 07/25/25 12:20 Labs: Lab Results 07/25/25 07/25/25 Range/Units 12:20 17:11 WBC 6.3 (4.5-11.0) X10^3/uL RBC 4.54 (4.0-5.2) X10^6/uL Hgb 14.8 (12.0-16.0) g/dL Hct 43.1 (36-46) % MCV 95.1 (80-100) fL MCH 32.6 (26-34) PG MCHC 34.3 (30-36) % RDW 12.7 (11.6-14.8) % Plt Count 246 (150-400) X10^3/uL Neut % (Auto) 72.5 (50-75) % Lymph % (Auto) 17.7 L (25-40) % [place] % (Auto) 7.6 (3-14) % Eos % (Auto) 0.8 L (2-4) % Baso % (Auto) 1.4 (0-2) % Neut # (Auto) 4500 (4266-2575) /uL Lymph # (Auto) 1100 (7114-4563) /uL [place] # (Auto) 500 (0-900) /uL Eos # (Auto) 0 (0-450) /uL Baso # (Auto) 100 (0-100) /uL Sodium 140 (137-145) mmol/L Potassium 3.9 (3.4-5.1) mmol/L Chloride 105 (98-107) mmol/L Carbon Dioxide 26 (22-32) mmol/L BUN 23 H (7-17) mg/dL Creatinine 0.86 (0.52-1.04) mg/dL Estimated GFR > 60 (>60) mL/min BUN/Creatinine Ratio 26.7 H (6-22) Glucose 91 (70-99) mg/dL Lactate 1.2 (0.7-2.1) mmol/L Calcium 9.2 (8.4-10.2) mg/dL Total Bilirubin 0.8 (0.2-1.3) mg/dL AST 45 H (14-36) IU/L ALT 35 H (<35) IU/L Alkaline Phosphatase 96 (38-126) U/L Total Protein 7.6 (6.3-8.2) g/dL Albumin 4.6 (3.5-5.0) g/dL Globulin 3.0 (1.7-4.1) g/dL Albumin/Globulin Ratio 1.5 (1.0-2.8) Lipase 81 (23-300) U/L Urine Dip Bedside Urine Glucose Negative Bedside Urine Bilirubin - Negative Bedside Urine Ketone - Negative Urine Specific [place] 1.005 Bedside Urine Occult Blood - Negative Bedside Urine pH 6.5 Bedside Urine Protein - Negative Bedside Urine Urobilinogen +/- 1mg Bedside Urine Nitrite - Negative Bedside Urine Leukocytes - Negative Esterase Point of care testing: Urine Dip Bedside Urine Glucose Negative Bedside Urine Bilirubin - Negative Bedside Urine Ketone - Negative Urine Specific [place] 1.005 Bedside Urine Occult Blood - Negative Bedside Urine pH 6.5 Bedside Urine Protein - Negative Bedside Urine Urobilinogen +/- 1mg Bedside Urine Nitrite - Negative Bedside Urine Leukocytes - Negative Esterase Imaging Data CT scan - abdomen/pelvis: Radiologist's Impression: PROCEDURE: CT ABDOMEN PELVIS W CON INDICATIONS: diffuse abd pain, + rebound and guarding, nonbloody diarrhea TECHNIQUE: After the administration of intravenous contrast, axial sections acquired from the lung bases to the pubic symphysis. Coronal and sagittal reformats were performed. For radiation dose reduction, the following was used: automated exposure control, adjustment of mA and/or kV according to patient size. COMPARISON: [facility], CT, CT ABDOMEN PELVIS WO CON, 03/26/2020, 11:47. [facility], [place], PET BRAIN METABOLISM, 02/02/2024, 14:23. FINDINGS: Image quality: Portions of the lower pelvis are suboptimally evaluated secondary to metallic streak artifact from bilateral hip arthroplasty. Lower Chest: Heart is enlarged. Minimal pericardial effusion. ABDOMEN: Liver: Simple hepatic cyst. Gallbladder: Unremarkable. Biliary ducts: No biliary dilation. Pancreas: Pancreatic duct measures 3 mm. This is more prominent when compared to 2019. Spleen: Size is within normal limits. Adrenal Glands: No adrenal nodules. Kidneys and Ureters: No hydronephrosis. No solid mass. No complex renal cystic lesion which requires follow up. Stomach and Bowel: Normal colonic caliber, without significant wall thickening. Peritoneum: No abnormal intraperitoneal fluid. No free air. Ventral Wall: No significant ventral hernia. Abdominal Nodes: No retroperitoneal or mesenteric adenopathy by size criteria. Vessels: Aorta and inferior vena cava are normal in size. PELVIS: Pelvic Organs: Unremarkable. Bladder: No bladder wall thickening, accounting for underdistention. Pelvic Nodes: No enlarged lymph nodes. Miscellaneous: No inguinal hernias are seen. Bones: No aggressive osseous abnormality. IMPRESSION: No acute intra-abdominal or pelvic process. Mild prominence of the pancreatic duct, nonspecific. No focal mass. Dictated by: Liliana Thompson M.D. on 07/25/2025 at 18:31 MDM Narrative Medical decision making narrative: CC: Abdominal pain with diarrhea Complicating co-morbidities: Hemicolectomy associated with incarcerated inguinal hernia 2016, notable for only medication as alendronate Data collected from: patient, grandson who accompanies her from [facility] and granddaughter who lives with her on [facility] Medical records reviewed: Medical records indicate chronic neuropathic pain, prior cataract surgery, there are notes of surgical intervention with an incarcerated hernia in 2017 however those notes predate current EMR and are not immediately available Differential considered: Bowel obstruction, bowel ischemia, ischemic colitis, appendicitis, perforated diverticulitis, Exam documented above, pertinent findings include: Frail, quite thin, in obvious pain with guarding and developing rebound present entire abdomen. Borborygmi appreciated. Lab Test results independently reviewed as above. Pertinent findings: CBC is unremarkable Chemistries are reassuring. AST and ALT are minimally elevated at 45 and 35 respectively. Independently reviewed EKG: Sinus rhythm at a rate of 61, no significant ischemic changes Imaging studies independently reviewed: Initial CT scan of abdomen and pelvis does not show significant pathology beyond nonspecific prominence of pancreatic duct Consultations: Dr. Remberto holt, general surgery. Given the severity of her pain I am not comfortable sending her home. Given the negative workup in the negative CT scan I would like his recommendations. We talked about doing a CT angiogram to more thoroughly evaluate for mesenteric ischemia and he suggested that he come in look at the CT scan himself and examined the patient prior to additional imaging. Treatments: Fluids, Zofran, Dilaudid Re-evaluations: On re-evaluation her ex [id number] is now available and confirms her Alzheimer's diagnosis. She in fact has been having complaints of abdominal pain for well over a year, loose stools that same timeframe. She typically sees a manager garage and is on quite a few pancreatic enzymes. Patient herself was complaining of recurrent episodes of diarrhea states she soiled her pants we helped her to the bathroom and in fact she had not had any diarrhea and the sensation of swelling her pants was toilet paper in her underwear. Discussion: 79-year-old woman who presents with complaints of abdominal pain. She does have moderate cognitive impairment and history was difficult to obtain until the end of her visit when her [id number] was available. CT scan shows quite a bit of air, she is quite thin possibility of mesenteric ischemia was considered and felt unlikely after more thorough evaluation. Labs are unremarkable. Despite her complaints of multiple episodes of diarrhea, no stool was actually produced. We did discuss holding her pancreatic enzymes for at least a week to see if this made any difference. Also discussed use of Mylanta to help with the gas and stool sample if available to be correct. She will follow up with her primary care physician. On repeat exam the majority of her abdominal pain has resolved, there is no indication for hospitalization, additional imaging or further workup and she is safe for discharge home Discharge Plan Departure Patient Disposition: Home Clinical Impression: Cognitive impairment Abdominal pain Qualifiers: Abdominal location: generalized Qualified Code(s): R10.84 - Generalized abdominal pain Diarrhea Qualifiers: Diarrhea type: unspecified type Qualified Code(s): R19.7 - Diarrhea, unspecified Instructions: DI for Abdominal Pain-Adult Activity Restrictions/Additional Instructions: Thank you for coming in today Your workup was actually quite reassuring. Blood work does not show evidence of infection, significant blood loss, kidney dysfunction. ALT and AST are minimally elevated. You did not actually produce any diarrhea in the emergency department for us to do a stool sample with Your CT scan did not show dramatic abnormalities, there was no indication for surgery or admission to the hospital. The scan did show quite a bit of gas throughout your colon. Using simethicone to help break down the big gas bubbles into little gas bubbles so that you can pass them easier maybe helpful with pain control. I am also going to suggest that you hold all of your GI enzymes for 1 week and see if this makes any difference with your symptoms. I do recommend that you follow up with your primary care physician. If you feel that you are getting worse you are free to return to the ER. Prescriptions: No Action alendronate 70 mg tablet 70 mg PO QWEEK Qty: 12 3RF mupirocin 2 % ointment 1 applic topical BID Qty: 22 0RF Referrals: Fatuma Killian ARNP, RN [Primary Care Provider, Emergency Medicine] Stand Alone Forms: Patient Portal/API
--- NOTE | 2025-07-25 16:33 | DI.CT.S_ITS ---
PROCEDURE: CT ABDOMEN PELVIS W CON INDICATIONS: diffuse abd pain, + rebound and guarding, nonbloody diarrhea TECHNIQUE: After the administration of intravenous contrast, axial sections acquired from the lung bases to the pubic symphysis. Coronal and sagittal reformats were performed. For radiation dose reduction, the following was used: automated exposure control, adjustment of mA and/or kV according to patient size. COMPARISON: [facility], CT, CT ABDOMEN PELVIS WO CON, 03/26/2020, 11:47. [facility], [place], PET BRAIN METABOLISM, 02/02/2024, 14:23. FINDINGS: Image quality: Portions of the lower pelvis are suboptimally evaluated secondary to metallic streak artifact from bilateral hip arthroplasty. Lower Chest: Heart is enlarged. Minimal pericardial effusion. ABDOMEN: Liver: Simple hepatic cyst. Gallbladder: Unremarkable. Biliary ducts: No biliary dilation. Pancreas: Pancreatic duct measures 3 mm. This is more prominent when compared to 2019. Spleen: Size is within normal limits. Adrenal Glands: No adrenal nodules. Kidneys and Ureters: No hydronephrosis. No solid mass. No complex renal cystic lesion which requires follow up. Stomach and Bowel: Normal colonic caliber, without significant wall thickening. Peritoneum: No abnormal intraperitoneal fluid. No free air. Ventral Wall: No significant ventral hernia. Abdominal Nodes: No retroperitoneal or mesenteric adenopathy by size criteria. Vessels: Aorta and inferior vena cava are normal in size. PELVIS: Pelvic Organs: Unremarkable. Bladder: No bladder wall thickening, accounting for underdistention. Pelvic Nodes: No enlarged lymph nodes. Miscellaneous: No inguinal hernias are seen. Bones: No aggressive osseous abnormality. IMPRESSION: No acute intra-abdominal or pelvic process. Mild prominence of the pancreatic duct, nonspecific. No focal mass. Dictated by: Liliana Thompson M.D. on 07/25/2025 at 18:31 Approved by: Liliana Thompson M.D. on 07/25/2025 at 18:40
[2025-07-25] MEDS: SODIUM CHLORIDE 0.9% 1,000 ML 1000 ML IV (17:07)
[2025-07-25 17:29] LABS: Lactate (Lactic Acid) 1.2 mmol/L (0.7-2.1)
--- NOTE | 2025-07-25 20:36 | PM.HP.IH.1 ---
History of Present Illness History of Present Illness Date Patient Seen: 07/25/25 Time Patient Seen: 07:30 Date of Onset of Symptoms: 07/13/25 Chief complaint: Abd pain, dairrhea, nausea, dizziness Narrative: Patient is a 79-year-old white female that presents to the emergency room with left lower quadrant colicky abdominal pain was going on for 3-4 months sharp colicky last for a short period of time then comes in waves of every 10-15 minutes is better with a bowel movement. The patient states she has been having diarrhea for months her daughter states it has been for 12 months but then she has constipation she can not quantify whether she has any melena or not patient has lost 10 lb in the last 2 months admits to nausea denies any vomiting. I was asked to see patient for surgical evaluation. The patient appears to have some slight dementia easily confused difficult to answer questions daughter and granddaughter have to answer questions for her. Patient's admitting laboratory shows WBC 6.3 hemoglobin is 14.8 hematocrit is 43.1 platelets are 246,000 sodium is 140 potassium 3.9 chloride 105 bicarb is 26 BUN of 23 creatinine 0.86 random blood sugar is [address] scan performed which shows degenerative joint disease with disc disease slight cardiomegaly normal gallbladder without any inflammation small hiatal hernia patient has considerable gas pattern throughout her colon she does have a slightly dilated pancreatic duct but normal common bile duct no signs of infection inflammation is noted the patient and did receive IV contrast no signs of vascular occlusion or narrowing were noted patient does have a very sharp 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 Patient states she does not vomit and she has not had any emesis of food that has been in there for several days duration so highly unlikely for a duodenal outlet obstruction. Allergies: Augmentin, codeine, fluorouracil, garlic, onions, mercury, gabapentin Medications: The patient is taking arthritis medications but also is taking multiple digestive enzymes pancreatic enzymes and probiotics at home but they do not have the names. Past medical history: Corrective lenses, 4 para 2 miscarriage 2, dementia Alzheimer's, degenerative joint disease with osteoarthritis. Patient and family deny any other heart lungs digestive musculoskeletal neurological seizure disorder psychiatric problems risks are Infectious diseases HIV or AIDS. Past surgical history: Tonsils and adenoids, right and left total hips, HILTON question whether ovaries are intact, history of a incarcerated left inguinal hernia with a right hemicolectomy in 2017, D and C, she denies any history of screening EGDs or colonoscopies. Social history: Patient lives at home with family denies any tobacco alcohol or recreational drug usage Vitals: Temperature is 97.2? pulse is 108 respirations 22 BP is 162/69 SaO2 is 99% on room air. Patient is 5 ft 2 in tall 95 lb family states she has lost approximately 10 lb in the past 2 months. Head is normocephalic eyes PERRLA EOMI is intact nares are clear oropharyngeal cavity slight gum retraction oropharyngeal cavity is slightly dry heart irregular rate and rhythm without murmurs. Lungs diminished in the bases poor inspiratory and expiratory effort poor chest wall motion noted. Abdomen is slightly scaphoid negative Farooq's Krishna Abarca Escobar's Rodriguez's McBurney's no masses or peritoneal signs no rebound or guarding no palpable masses no further incisional hernias. Musculoskeletal very poor muscle tone and strength but equal bilaterally no gross deficits elicited. Impression: Left lower quadrant colicky abdominal pain of 3-4 months' duration associated with constipation and/or diarrhea better with bowel movement Possible diarrhea of 12 months' duration then family recounts possible constipation of 12 months 10 lb weight loss in 2 months Dementia Alzheimer's disease Minimally elevated liver enzymes with dilated pancreatic duct but no signs of common bile duct obstruction patient is taking multiple enzyme supplements and pancreatic enzymes at home WBC is 6.3 Hemoglobin is 14.8 hematocrit is 43.1 Plan: Patient was discussed the options and findings given option of being admitted and worked up for the diarrhea and bowel irregularities. Discussed the findings with the bowel gas cramps and stool changes they desire to possibly be worked up outpatient with her family doctor we will send home with a stool collection for diarrhea they are told if it is solid the yield is lower for infectious diarrhea. Also they need to follow up with her family physician for altering of their medications as some of the pancreatic enzymes may be causing digestive problems. Also discussed dietary changes gas may be treated with simethicone containing products multiple options were given also discussed dietary supplements the daughter is quite adamant she does not want to give her mother anything that may have protein powders and as they all contained mercury all questions were answered to their satisfaction they desire to be worked up on an outpatient basis not be admitted to the hospital at this time they have any further questions or concerns returned to the ER for re-evaluation and reassessment. 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 Pelvic relaxation Spinal stenosis, lumbar region without neurogenic claudication Surgical History Anesthesia S/P hernia repair S/P hysterectomy S/P hip replacement (~2018) Social History household members: none Smoking Status: Never smoker alcohol intake: never Meds Home Medications and Allergies Home Medications ?Medication ?Instructions ?Recorded ?Confirmed ?Type alendronate 70 mg tablet 70 mg PO QWEEK #12 tabs 11/11/22 04/18/23 Rx mupirocin 2 % topical ointment 1 applic topical BID #22 grams 11/18/22 04/18/23 Rx Allergies Allergy/AdvReac Type Severity Reaction Status Date / Time amoxicillin (AMOXICILLIN) Allergy Intermediate BUMPS IN Verified 07/25/25 12:16 MY MOUTH, NAUSEA, DIZZINESS codeine (CODEINE) Allergy Intermediate BUMPS IN Verified 07/25/25 12:16 MY MOUTH, NAUSEA, DIZZINESS fluorouracil Allergy Intermediate BLISTERS Verified 07/25/25 12:16 garlic (GARLIC) Allergy Intermediate BUMPS IN Verified 07/25/25 12:16 MY MOUTH, LIPS TINGLE onion (ONION) Allergy Intermediate BUMPS IN Verified 07/25/25 12:16 MOUTH, LIPS TINGLING mercury (elemental) (MERCURY Allergy Unknown metal Verified 07/25/25 12:16 (ELEMENTAL)) poisoning gabapentin AdvReac Severe felt Verified 07/25/25 12:16 suicidal Exam Vital Signs (past 8 hours): - 07/25/25 15:11 07/25/25 15:30 07/25/25 15:30 Pulse Rate 60 61 Respiratory Rate 16 Blood Pressure 135/70 Pulse Oximetry 98 99 07/25/25 16:00 07/25/25 16:00 07/25/25 16:30 Pulse Rate 63 59 L Respiratory Rate 16 Blood Pressure 134/59 L Pulse Oximetry 99 99 07/25/25 16:30 07/25/25 17:00 07/25/25 17:00 Pulse Rate 61 Respiratory Rate 20 Blood Pressure 116/63 147/70 H Pulse Oximetry 100 07/25/25 17:30 07/25/25 17:30 07/25/25 18:00 Pulse Rate 53 L 52 L Respiratory Rate 21 20 Blood Pressure 133/68 Pulse Oximetry 100 99 07/25/25 18:00 07/25/25 18:30 07/25/25 18:30 Pulse Rate 55 L Respiratory Rate 28 H Blood Pressure 134/62 141/67 H Pulse Oximetry 97 07/25/25 19:00 07/25/25 19:00 07/25/25 19:30 Pulse Rate 59 L 108 H Respiratory Rate 23 22 Blood Pressure 162/69 H Pulse Oximetry 98 99 Oxygen Delivery Method Room Air Objective Labs 07/25/25 12:20 07/25/25 12:20 Labs: Laboratory Results - last 24 hr 07/25/25 07/25/25 12:20 17:11 WBC 6.3 RBC 4.54 Hgb 14.8 Hct 43.1 MCV 95.1 MCH 32.6 MCHC 34.3 RDW 12.7 Plt Count 246 Neut % (Auto) 72.5 Lymph % (Auto) 17.7 L Wilson % (Auto) 7.6 Eos % (Auto) 0.8 L Baso % (Auto) 1.4 Neut # (Auto) 4500 Lymph # (Auto) 1100 Wilson # (Auto) 500 Eos # (Auto) 0 Baso # (Auto) 100 Sodium 140 Potassium 3.9 Chloride 105 Carbon Dioxide 26 BUN 23 H Creatinine 0.86 Estimated GFR > 60 BUN/Creatinine Ratio 26.7 H Glucose 91 Lactate 1.2 Calcium 9.2 Total Bilirubin 0.8 AST 45 H ALT 35 H Alkaline Phosphatase 96 Total Protein 7.6 Albumin 4.6 Globulin 3.0 Albumin/Globulin Ratio 1.5 Lipase 81 Assessment & Plan Time-Based Coding :: [TOTAL MINUTES] spent with patient and on the chart (including review of chart, obtaining history, exam, reviewing outside data, placing orders, documenting exam and treatment plan, and counseling patient) on [DATE]. PROFEE Spiral [employer] Winder Document charge(s): Yes
== END 2025-07-25 22:09 | disposition home or self-care (01) ==
PROVIDERS: Emergency Medicine; Emergency Provider Emergency Medicine; PCP Nurse Practitioner Family
DX: R10.84 Generalized abdominal pain (principal); R19.7 Diarrhea, unspecified; R41.89 Other symptoms and signs involving cognitive functions and awareness
CPT/HCPCS: 36415; 74177; 80053; 81003; 83605; 83690; 85025; 93005; 96360; 99284; J7030; Q9967